=== PATIENT | female | born 1960 | race Caucasian/White ===

== ENCOUNTER → 2018-08-17 08:35 | Outpatient (CLI) | payer OTHER, SELFPAY ==
[2018-08-17 08:43] LABS: Bacteria Urine None Seen; RBC Urine None Seen (0-5/HPF); WBC Urine None Seen (0-5/HPF)
[2018-08-17 09:39] LABS: Mean Corpuscular HGB Conc 34.1 % (30-36); Mean Corpuscular Hemoglobin 29.9 PG (26-34); Mean Corpuscular Volume 87.8 fL (80-100); Platelet Count 323 X10^3/uL (150-400); Red Blood Cell Count 5.01 X10^6/uL (4.0-5.2); Red Cell Distribution Width 13.1 % (11.6-14.8); White Blood Cell Count 5.8 X10^3/uL (4.5-11.0)
[2018-08-17 09:59] LABS: Alanine Aminotransferase 38 IU/L (9-52); Albumin 4.5 g/dL (3.5-5.0); Albumin Globulin Ratio 1.5 (1.0-2.8); Alkaline Phosphatase 85 U/L (38-126); Aspartate Aminotransferase 35 IU/L (14-36); Bilirubin Total 0.8 mg/dL (0.2-1.3); Blood Urea Nitrogen 16 mg/dL (7-17); Calcium 9.2 mg/dL (8.4-10.2); Carbon Dioxide 31 mmol/L (22-32); Chloride 102 mmol/L (98-107); Cholesterol 160 mg/dL (140-199); Estimated Glomerular Filt Rate > 60.0 mL/min (>60); Glucose 96 mg/dL (70-100); HDL Cholesterol 35 mg/dL (40-60); HEMOLYSIS < 15 (0-50); LDL Cholesterol Calculated 86 mg/dL (<100); Potassium 4.6 mmol/L (3.4-5.1); Sodium 142 mmol/L (137-145); Total Protein 7.5 g/dL (6.3-8.2); Triglycerides 196 mg/dL (35-150)
[2018-08-17 10:24] LABS: Thyroid Stimulating Hormone 1.14 uIU/mL (0.47-4.68)
[2018-08-17 10:38] LABS: Appearance Urine UA CLEAR; Bilirubin Urine UA NEGATIVE (NEGATIVE); Color Urine UA YELLOW; Glucose Urine UA NEGATIVE (Normal); Ketones Urine UA NEGATIVE (NEGATIVE); Leukocyte Esterase Urine UA NEGATIVE (NEGATIVE); Nitrite Urine UA NEGATIVE (Negative); Occult Blood Urine UA 1+ (Negative); Protein Urine UA NEGATIVE (Negative); Specific Gravity Urine UA 1.025 (1.000-1.035); Urobilinogen Urine UA 0.2 E.U./dL (0.2)
[2018-08-17 10:41] LABS: Amorphous Sediment Urine 2+; Squamous Epithelial Cell Urine 5-10 /HPF
[2018-08-17 10:42] LABS: Culture Indicated Urine Cult Not Indicated
== END ==
PROVIDERS: PCP Family Medicine; Visit Provider Family Medicine
DX: L57.0 Actinic keratosis (principal); Z51.81 Encounter for therapeutic drug level monitoring
CPT/HCPCS: 36415; 80053; 80061; 81001; 84443; 85027

== ENCOUNTER → 2018-10-10 08:36 | Outpatient (CLI) | payer OTHER, SELFPAY ==
[2018-10-10 09:15] LABS: Appearance Urine UA CLEAR; Bilirubin Urine UA NEGATIVE (NEGATIVE); Color Urine UA YELLOW; Glucose Urine UA NEGATIVE (Normal); Ketones Urine UA NEGATIVE (NEGATIVE); Leukocyte Esterase Urine UA NEGATIVE (NEGATIVE); Nitrite Urine UA NEGATIVE (Negative); Occult Blood Urine UA 1+ (Negative); Protein Urine UA NEGATIVE (Negative); Specific Gravity Urine UA <=1.005 (1.000-1.035); Urobilinogen Urine UA 0.2 E.U./dL (0.2); pH Urine UA 5.5 (4.5-8.0)
== END ==
PROVIDERS: PCP Family Medicine; Visit Provider Family Medicine
DX: R31.9 Hematuria, unspecified (principal)
CPT/HCPCS: 81003

== ENCOUNTER 2019-05-07 11:29 | Emergency (ER) | payer OTHER, SELFPAY ==
[2019-05-07 11:33] VITALS: BP 130/69; PULSE 60; RESP 18; TEMP 36.5; O2SAT 99; BMI 30.4
--- NOTE | 2019-05-07 12:01 | DI.US.S_ITS ---
PROCEDURE: US ABDOMEN LIMITED INDICATIONS: RIGHT UPPER QUADRANT PAIN WITH NAUSEA TECHNIQUE: Real-time focused scanning was performed of the abdomen, with image documentation. COMPARISON: None. FINDINGS: The liver demonstrates normal size. The liver demonstrates generalized increased echogenicity. This decreases ultrasound sensitivity for detection of hepatic masses. Apparent focal fatty sparing can be seen at the douglas hepatis. No findings of gallstones or sludge are seen. The gallbladder wall is not thickened, measuring 3 mm or less. No specific pericholecystic fluid is seen. The sonographic Real sign is negative. There is no biliary dilatation, the common bile duct measures 4 mm. The visualized pancreas is unremarkable. IMPRESSION: The gallbladder demonstrates a normal sonographic appearance. No biliary dilatation is seen. Apparent focal fatty infiltration with presumed focal fatty sparing Dictated by: Jeremy Bonilla M.D. on 05/07/2019 at 11:51 Approved by: Jeremy Bonilla M.D. on 05/07/2019 at 11:52
[2019-05-07 12:06] LABS: Add Manual Diff / Slide Review NO; Basophils Absolute Auto 100 /uL (0-100); Basophils Percent Auto 0.6 % (0-2); Eosinophils Absolute Auto 200 /uL (0-450); Eosinophils Percent Auto 1.7 % (2-4); Hematocrit 42.3 % (36-46); Hemoglobin 14.6 g/dL (12.0-16.0); Lymphocytes Absolute Auto 1700 /uL (1100-4500); Lymphocytes Percent Auto 14.1 % (25-40); Mean Corpuscular HGB Conc 34.4 % (30-36); Mean Corpuscular Volume 87.1 fL (80-100); Monocytes Absolute Auto 800 /uL (0-900); Monocytes Percent Auto 6.9 % (3-14); Neutrophils Absolute Auto 9300 /uL (1500-7000); Neutrophils Percent Auto 76.7 % (50-75); Platelet Count 268 X10^3/uL (150-400); Red Blood Cell Count 4.86 X10^6/uL (4.0-5.2); Red Cell Distribution Width 12.8 % (11.6-14.8); White Blood Cell Count 12.2 X10^3/uL (4.5-11.0)
[2019-05-07 12:14] LABS: INR 1.1 (0.9-1.3); Prothrombin Time 12.8 SECONDS (10.1-12.7)
--- NOTE | 2019-05-07 12:14 | ED.ABDPAIN ---
HPI - Abdominal Pain <KYLEE Carolina-BC - Last Filed: 05/07/19 15:09> General Chief Complaint: Abdominal Pain Stated Complaint: Really bad upper stomach pain, sent from walk in Time Seen by Provider: 05/07/19 11:51 Source: patient Mode of arrival: ambulatory Limitations: no limitations History of Present Illness HPI narrative: Disease is a 58 year old female, history of nonsmoker, and hysterectomy who presents with a chief complaint of right upper quadrant pain that has been going off and on since 2 days. She states that her pain was 10/10 last night in her right upper quadrant, but it is not as bad today. She states it is worse with eating. She denies any other abdominal surgeries other than her hysterectomy. She complains of subjective fevers, but did not take her temperature as well as chills. She has some nausea, no vomiting. She tried ibuprofen, which helped her pain. She also tried Pepto-Bismol. She complains of 1 day of constipation, but believes it is related to her Pepto-Bismol. She denies any shortness of breath, chest pain, cough or congestion. She states that this has happened before, but the right upper quadrant pain has never lasted this long. She states it radiates around to her flank at times. She describes it as a squeezing pain. Related Data Home Medications Medication Instructions Recorded Confirmed multivitamin [Multiple Vitamins] #0 11/11/17 07/20/18 Previous Rx's Medication Instructions Recorded diazepam 10 mg tablet See Rx Instructions .ROUTE 08/01/18 .COMPLEX PRN #4 tab Allergies Allergy/AdvReac Type Severity Reaction Status Date / Time No Known Drug Allergies Allergy Verified 07/20/18 11:19 Review of Systems <KYLEE Carolina-BC - Last Filed: 05/07/19 15:09> Review of Systems GENERAL: See HPI HEENT: Denies sinus pain, ear pain, sore throat, difficulty swallowing, dizziness. RESPIRATORY: Denies dyspnea, cough, wheezing, hemoptysis, sputum. CARDIOVASCULAR: Denies chest pain, palpitations, orthopnea, edema, GASTROINTESTINAL: see HPI : Denies dysuria, frequency, incontinence, hematuria, urinary retention. MUSCULOSKELETAL: denies weakness, joint pain, or bony pain SKIN: Denies rash, skin lesions, or other NEUROLOGIC: Denies weakness, headache, numbness, change in speech, confusion, seizures, incoordination. PSYCHIATRIC: No concerning psychosocial issues. 12 point review of systems is negative except for those stated above PFSH <WALTER Carolina - Last Filed: 05/07/19 15:09> Medical History Herpes (Chronic 1981) Fibroids (Resolved ~2011) Foot pain (Resolved 2015) Surgical History Status post vaginal hysterectomy (2010) Family History (Updated 07/22/18 @ 10:33 by Anabel Murillo LPN) Mother Age: 80 Hypertension High cholesterol Father High cholesterol Hypertension Grandfather Heart disease Grandmother Cancer Social History Smoking Status: Never smoker alcohol intake: current Family History Mother Age: 80 Hypertension High cholesterol Father High cholesterol Hypertension Grandfather Heart disease Grandmother Cancer Social History Smoking Status: Never smoker alcohol intake: current Exam <WALTER Carolina - Last Filed: 05/07/19 15:09> Narrative Exam Narrative: GENERAL: This is a well-nourished, well-developed patient, in NAD HEAD: Atraumatic. Normocephalic. No temporal or scalp tenderness. EYES: Pupils equal round and reactive. Extraocular motions intact. No scleral icterus. No injection or drainage. ENT: Nose without bleeding, purulent drainage or septal hematoma. Throat without erythema, tonsillar hypertrophy or exudate. Uvula midline. Airway patent. NECK: Trachea midline. No JVD or lymphadenopathy. Supple, nontender, no meningeal signs. CARDIOVASCULAR: Regular rate and rhythm without murmurs, gallops, or rubs. RESPIRATORY: Clear to auscultation. Breath sounds equal bilaterally. No wheezes, rales, or rhonchi. No stridor, no increased work of breathing, no accessory muscle use. GASTROINTESTINAL: Abdomen soft, tender to palpate in RUQ and epigastric area, nondistended. No hepato-splenomegaly, or palpable masses. No guarding. Active bowel sounds in all quadrants EXTREMITIES: No clubbing, cyanosis, or edema. No joint tenderness, effusion, or edema noted. BACK: Nontender without deformity or crepitance. No flank tenderness. NEURO: AOx3. SKIN: No rash or erythema. Initial Vital Signs Initial Vital Signs: Vital Signs Temperature 97.7 F 05/07/19 11:33 Pulse Rate 60 05/07/19 11:33 Respiratory Rate 18 05/07/19 11:33 Blood Pressure 130/69 05/07/19 11:33 Pulse Oximetry 99 05/07/19 11:33 <Reina Cintron MD - Last Filed: 05/07/19 18:45> Initial Vital Signs Initial Vital Signs: Vital Signs Temperature 97.7 F 05/07/19 11:33 Pulse Rate 60 05/07/19 11:33 Respiratory Rate 18 05/07/19 11:33 Blood Pressure 130/69 05/07/19 11:33 Pulse Oximetry 99 05/07/19 11:33 Course <WALTER Carolina - Last Filed: 05/07/19 15:09> Orders Ordered: ED Orders 05/07/19 11:45 Urine Culture Stat Urine Microscopic Stat 05/07/19 11:49 EKG-12 Lead Stat 05/07/19 12:00 Amylase Stat Complete Blood Count AUTO DIFF Stat Comprehensive Metabolic Panel Stat Lipase Stat Partial Thromboplastin Time Stat Prothrombin Time INR Stat Troponin & CK Cardiac Panel Stat 05/07/19 12:01 US abdomen limited Stat Discontinued Medications Al Hydrox/Mg Hydrox/Simethicone 20 ml/ Lidocaine HCl 15 ml 0 ml PO NOW ONE Stop: 05/07/19 13:09 Last Admin: 05/07/19 13:19 Dose: 35 ml Sodium Chloride (Normal Saline 0.9%) 1,000 mls @ 100 mls/hr IV CONT GREG Last Infusion: 05/07/19 14:45 Dose: 0 mls/hr Admin: 05/07/19 12:16 Dose: 100 mls/hr Ondansetron HCl (Zofran) 4 mg IV NOW ONE Stop: 05/07/19 12:04 Last Admin: 05/07/19 12:16 Dose: 4 mg Pantoprazole Sodium (Protonix) 40 mg IV NOW ONE Stop: 05/07/19 13:09 Last Admin: 05/07/19 13:19 Dose: 40 mg Vital Signs - 8 hr 05/07/19 11:33 05/07/19 12:39 05/07/19 13:26 Temperature 97.7 F Pulse Rate 60 52 L 55 L Respiratory Rate 18 16 16 Blood Pressure 130/69 Blood Pressure [Right Arm] 125/68 136/60 Pulse Oximetry 99 100 100 05/07/19 15:02 Temperature Pulse Rate 74 Respiratory Rate 16 Blood Pressure Blood Pressure [Right Arm] 129/78 Pulse Oximetry 99 <Reina Cintron MD - Last Filed: 05/07/19 18:45> Orders Ordered: ED Orders 05/07/19 11:45 Urine Culture Stat Urine Microscopic Stat 05/07/19 11:49 EKG-12 Lead Stat 05/07/19 12:00 Amylase Stat Complete Blood Count AUTO DIFF Stat Comprehensive Metabolic Panel Stat Lipase Stat Partial Thromboplastin Time Stat Prothrombin Time INR Stat Troponin & CK Cardiac Panel Stat 05/07/19 12:01 US abdomen limited Stat Discontinued Medications Al Hydrox/Mg Hydrox/Simethicone 20 ml/ Lidocaine HCl 15 ml 0 ml PO NOW ONE Stop: 05/07/19 13:09 Last Admin: 05/07/19 13:19 Dose: 35 ml Sodium Chloride (Normal Saline 0.9%) 1,000 mls @ 100 mls/hr IV CONT GREG Last Infusion: 05/07/19 14:45 Dose: 0 mls/hr Admin: 05/07/19 12:16 Dose: 100 mls/hr Ondansetron HCl (Zofran) 4 mg IV NOW ONE Stop: 05/07/19 12:04 Last Admin: 05/07/19 12:16 Dose: 4 mg Pantoprazole Sodium (Protonix) 40 mg IV NOW ONE Stop: 05/07/19 13:09 Last Admin: 05/07/19 13:19 Dose: 40 mg Vital Signs - 8 hr 05/07/19 11:33 05/07/19 12:39 05/07/19 13:26 Temperature 97.7 F Pulse Rate 60 52 L 55 L Respiratory Rate 18 16 16 Blood Pressure 130/69 Blood Pressure [Right Arm] 125/68 136/60 Pulse Oximetry 99 100 100 05/07/19 15:02 Temperature Pulse Rate 74 Respiratory Rate 16 Blood Pressure Blood Pressure [Right Arm] 129/78 Pulse Oximetry 99 MDM - Abdominal Pain <Karley Mandel, EDUCATIONAL THERAPIST-BC - Last Filed: 05/07/19 15:09> Lab Data Result diagrams: 05/07/19 12:00 05/07/19 12:00 Lab Results 05/07/19 05/07/19 05/07/19 Range/Units 11:45 12:00 12:00 WBC 12.2 H (4.5-11.0) X10^3/uL RBC 4.86 (4.0-5.2) X10^6/uL Hgb 14.6 (12.0-16.0) g/dL Hct 42.3 (36-46) % MCV 87.1 (80-100) fL MCH 30.0 (26-34) PG MCHC 34.4 (30-36) % RDW 12.8 (11.6-14.8) % Plt Count 268 (150-400) X10^3/uL Neut % (Auto) 76.7 H (50-75) % Lymph % (Auto) 14.1 L (25-40) % [place] % (Auto) 6.9 (3-14) % Eos % (Auto) 1.7 L (2-4) % Baso % (Auto) 0.6 (0-2) % Neut # (Auto) 9300 H (4353-9535) /uL Lymph # (Auto) 1700 (3668-2938) /uL [place] # (Auto) 800 (0-900) /uL Eos # (Auto) 200 (0-450) /uL Baso # (Auto) 100 (0-100) /uL PT 12.8 H (10.1-12.7) SECONDS INR 1.1 (0.9-1.3) APTT 36 (26.4-36.2) SECONDS Sodium (137-145) mmol/L Potassium (3.4-5.1) mmol/L Chloride (98-107) mmol/L Carbon Dioxide (22-32) mmol/L BUN (7-17) mg/dL Creatinine (0.52-1.04) mg/dL Estimated GFR (>60) mL/min BUN/Creatinine Ratio (6-22) Glucose (70-100) mg/dL Calcium (8.4-10.2) mg/dL Total Bilirubin (0.2-1.3) mg/dL AST (14-36) IU/L ALT (9-52) IU/L Alkaline Phosphatase (38-126) U/L Total Creatine Kinase (30-135) U/L CK-MB (CK-2) CK-MB (CK-2) Rel Index Troponin I (0.01-0.034) ng/mL Total Protein (6.3-8.2) g/dL Albumin (3.5-5.0) g/dL Globulin (1.7-4.1) g/dL Albumin/Globulin Ratio (1.0-2.8) Amylase (30-110) U/L Lipase (23-300) U/L Urine RBC 0-1/hpf (0-5/HPF) Urine WBC 0-1/hpf (0-5/HPF) Ur Squamous Epith Cells 5-10 /hpf H (0-5/HPF) Amorphous Sediment 1+ Urine Bacteria Moderate (10-30) H (None) Urine Mucus 3+ H (Negative) Ur Culture Indicated? Cult not indicated 05/07/19 05/07/19 05/07/19 Range/Units 12:00 12:00 12:00 WBC (4.5-11.0) X10^3/uL RBC (4.0-5.2) X10^6/uL Hgb (12.0-16.0) g/dL Hct (36-46) % MCV (80-100) fL MCH (26-34) PG MCHC (30-36) % RDW (11.6-14.8) % Plt Count (150-400) X10^3/uL Neut % (Auto) (50-75) % Lymph % (Auto) (25-40) % [place] % (Auto) (3-14) % Eos % (Auto) (2-4) % Baso % (Auto) (0-2) % Neut # (Auto) (0223-2515) /uL Lymph # (Auto) (4203-7060) /uL [place] # (Auto) (0-900) /uL Eos # (Auto) (0-450) /uL Baso # (Auto) (0-100) /uL PT (10.1-12.7) SECONDS INR (0.9-1.3) APTT (26.4-36.2) SECONDS Sodium 142 (137-145) mmol/L Potassium 4.4 (3.4-5.1) mmol/L Chloride 103 (98-107) mmol/L Carbon Dioxide 29 (22-32) mmol/L BUN 10 (7-17) mg/dL Creatinine 0.80 (0.52-1.04) mg/dL Estimated GFR > 60.0 (>60) mL/min BUN/Creatinine Ratio 12.5 (6-22) Glucose 100 (70-100) mg/dL Calcium 9.6 (8.4-10.2) mg/dL Total Bilirubin 1.0 (0.2-1.3) mg/dL AST 26 (14-36) IU/L ALT 27 (9-52) IU/L Alkaline Phosphatase 100 (38-126) U/L Total Creatine Kinase 59 (30-135) U/L CK-MB (CK-2) TNP CK-MB (CK-2) Rel Index TNP Troponin I < 0.012 (0.01-0.034) ng/mL Total Protein 7.8 (6.3-8.2) g/dL Albumin 4.4 (3.5-5.0) g/dL Globulin 3.4 (1.7-4.1) g/dL Albumin/Globulin Ratio 1.3 (1.0-2.8) Amylase 56 (30-110) U/L Lipase 127 (23-300) U/L Urine RBC (0-5/HPF) Urine WBC (0-5/HPF) Ur Squamous Epith Cells (0-5/HPF) Amorphous Sediment Urine Bacteria (None) Urine Mucus (Negative) Ur Culture Indicated? Point of care testing: Urine Dip Bedside Urine Glucose 100 mg/dl Bedside Urine Bilirubin - Negative Bedside Urine Ketone +/- 5 Urine Specific [place] 1.030 Bedside Urine Occult Blood + Bedside Urine pH 5.5 Bedside Urine Protein + 30 Bedside Urine Urobilinogen +/- 1mg Bedside Urine Nitrite - Negative Bedside Urine Leukocytes +/- 15 Esterase Imaging Data US - abdomen: Radiologist's impression: Zoraida Carrillo 58 F [address] [address] Ultrasound Report Signed Patient: [facility]#: [id number] : 1960Acct:[id number] Age/Sex: 58 / FDate of Service: 05/07/19 Loc: ED Accession Number: [id number] Procedure: US abdomen limited Ordering Provider: Karley Mandel PROCEDURE: US ABDOMEN LIMITED INDICATIONS: RIGHT UPPER QUADRANT PAIN WITH NAUSEA TECHNIQUE: Real-time focused scanning was performed of the abdomen, with image documentation. COMPARISON: None. FINDINGS: The liver demonstrates normal size. The liver demonstrates generalized increased echogenicity. This decreases ultrasound sensitivity for detection of hepatic masses. Apparent focal fatty sparing can be seen at the douglas hepatis. No findings of gallstones or sludge are seen. The gallbladder wall is not thickened, measuring 3 mm or less. No specific pericholecystic fluid is seen. The sonographic Real sign is negative. There is no biliary dilatation, the common bile duct measures 4 mm. The visualized pancreas is unremarkable. IMPRESSION: The gallbladder demonstrates a normal sonographic appearance. No biliary dilatation is seen. Apparent focal fatty infiltration with presumed focal fatty sparing Dictated by: Jeremy Bonilla M.D. on 05/07/2019 at 11:51 Approved by: Jeremy Bonilla M.D. on 05/07/2019 at 11:52 ECG Data Attestation: I personally reviewed and interpreted this ECG as follows: Interpretation: Sinus bradycardia. Ventricular rate 56. No ST elevation or depression. No ectopy noted. Viewed by Dr Saida WHITE Narrative Medical decision making narrative: The patient is a 58-year-old female who presents with a chief complaint of right upper quadrant pain. Her lab work is grossly within normal limits. She is noted to have some bacteria in her urine, but also lots of squamous cells so it is a contaminated sample. I ordered a urine culture, and we will treat if it comes back positive. We did an ultrasound of her right upper quadrant given that she has right upper quadrant pain. This came back within normal limits, with no acute gallbladder etiology. The patient was given Protonix as well as a GI cocktail and felt much improved. The patient later stated that she drink tomato juice with black coffee bright prior to her symptoms starting yesterday. I believe her symptoms are related to GERD/gastritis at this point time. She could be having some biliary colic as well. She felt much improved throughout her stay in the ER. I discussed at length following up with primary care provider as well as dietary changes. Discussed coming back to the ER for any acute concerns such as concern of chest pain, shortness of breath, inability keep down fluids. Discussed urine culture pending at this time. Patient has no questions or concerns upon discharge. I did offer her a prescription, but she declined and shows [id number] treatment at this point. States she will follow up with PCP. Hemodynamically stable throughout her stay in the ER. <Riena Cintron MD - Last Filed: 05/07/19 18:45> Lab Data Lab Results 05/07/19 05/07/19 05/07/19 Range/Units 11:45 12:00 12:00 WBC 12.2 H (4.5-11.0) X10^3/uL RBC 4.86 (4.0-5.2) X10^6/uL Hgb 14.6 (12.0-16.0) g/dL Hct 42.3 (36-46) % MCV 87.1 (80-100) fL MCH 30.0 (26-34) PG MCHC 34.4 (30-36) % RDW 12.8 (11.6-14.8) % Plt Count 268 (150-400) X10^3/uL Neut % (Auto) 76.7 H (50-75) % Lymph % (Auto) 14.1 L (25-40) % [place] % (Auto) 6.9 (3-14) % Eos % (Auto) 1.7 L (2-4) % Baso % (Auto) 0.6 (0-2) % Neut # (Auto) 9300 H (0335-7113) /uL Lymph # (Auto) 1700 (3715-9562) /uL [place] # (Auto) 800 (0-900) /uL Eos # (Auto) 200 (0-450) /uL Baso # (Auto) 100 (0-100) /uL PT 12.8 H (10.1-12.7) SECONDS INR 1.1 (0.9-1.3) APTT 36 (26.4-36.2) SECONDS Sodium (137-145) mmol/L Potassium (3.4-5.1) mmol/L Chloride (98-107) mmol/L Carbon Dioxide (22-32) mmol/L BUN (7-17) mg/dL Creatinine (0.52-1.04) mg/dL Estimated GFR (>60) mL/min BUN/Creatinine Ratio (6-22) Glucose (70-100) mg/dL Calcium (8.4-10.2) mg/dL Total Bilirubin (0.2-1.3) mg/dL AST (14-36) IU/L ALT (9-52) IU/L Alkaline Phosphatase (38-126) U/L Total Creatine Kinase (30-135) U/L CK-MB (CK-2) CK-MB (CK-2) Rel Index Troponin I (0.01-0.034) ng/mL Total Protein (6.3-8.2) g/dL Albumin (3.5-5.0) g/dL Globulin (1.7-4.1) g/dL Albumin/Globulin Ratio (1.0-2.8) Amylase (30-110) U/L Lipase (23-300) U/L Urine RBC 0-1/hpf (0-5/HPF) Urine WBC 0-1/hpf (0-5/HPF) Ur Squamous Epith Cells 5-10 /hpf H (0-5/HPF) Amorphous Sediment 1+ Urine Bacteria Moderate (10-30) H (None) Urine Mucus 3+ H (Negative) Ur Culture Indicated? Cult not indicated 05/07/19 05/07/19 05/07/19 Range/Units 12:00 12:00 12:00 WBC (4.5-11.0) X10^3/uL RBC (4.0-5.2) X10^6/uL Hgb (12.0-16.0) g/dL Hct (36-46) % MCV (80-100) fL MCH (26-34) PG MCHC (30-36) % RDW (11.6-14.8) % Plt Count (150-400) X10^3/uL Neut % (Auto) (50-75) % Lymph % (Auto) (25-40) % [place] % (Auto) (3-14) % Eos % (Auto) (2-4) % Baso % (Auto) (0-2) % Neut # (Auto) (9997-4869) /uL Lymph # (Auto) (9631-3913) /uL [place] # (Auto) (0-900) /uL Eos # (Auto) (0-450) /uL Baso # (Auto) (0-100) /uL PT (10.1-12.7) SECONDS INR (0.9-1.3) APTT (26.4-36.2) SECONDS Sodium 142 (137-145) mmol/L Potassium 4.4 (3.4-5.1) mmol/L Chloride 103 (98-107) mmol/L Carbon Dioxide 29 (22-32) mmol/L BUN 10 (7-17) mg/dL Creatinine 0.80 (0.52-1.04) mg/dL Estimated GFR > 60.0 (>60) mL/min BUN/Creatinine Ratio 12.5 (6-22) Glucose 100 (70-100) mg/dL Calcium 9.6 (8.4-10.2) mg/dL Total Bilirubin 1.0 (0.2-1.3) mg/dL AST 26 (14-36) IU/L ALT 27 (9-52) IU/L Alkaline Phosphatase 100 (38-126) U/L Total Creatine Kinase 59 (30-135) U/L CK-MB (CK-2) TNP CK-MB (CK-2) Rel Index TNP Troponin I < 0.012 (0.01-0.034) ng/mL Total Protein 7.8 (6.3-8.2) g/dL Albumin 4.4 (3.5-5.0) g/dL Globulin 3.4 (1.7-4.1) g/dL Albumin/Globulin Ratio 1.3 (1.0-2.8) Amylase 56 (30-110) U/L Lipase 127 (23-300) U/L Urine RBC (0-5/HPF) Urine WBC (0-5/HPF) Ur Squamous Epith Cells (0-5/HPF) Amorphous Sediment Urine Bacteria (None) Urine Mucus (Negative) Ur Culture Indicated? Point of care testing: Urine Dip Bedside Urine Glucose 100 mg/dl Bedside Urine Bilirubin - Negative Bedside Urine Ketone +/- 5 Urine Specific [place] 1.030 Bedside Urine Occult Blood + Bedside Urine pH 5.5 Bedside Urine Protein + 30 Bedside Urine Urobilinogen +/- 1mg Bedside Urine Nitrite - Negative Bedside Urine Leukocytes +/- 15 Esterase Discharge Plan Departure Patient Disposition: Home Clinical Impression: Abdominal pain Qualifiers: Abdominal location: right upper quadrant Qualified Code(s): R10.11 - Right upper quadrant pain Discharge Date/Time: 05/07/19 15:03 Interventions: ED Discharge Assessment Last Done: 05/07/19 15:02 Instructions: Heartburn -- Overview, DI for Gastroesophageal Reflux Disease (GERD), DI for Abdominal Pain-Adult, GERD Diet Activity Restrictions/Additional Instructions: Your lab work and ultrasound came back normal today. There is no evidence of gallbladder issue today, but this does not rule out one in the future However you did respond well to the antacid medication. I suggest an [id number] medications such as omeprazole to help prevent acid reflux issues. You can also take Tums or Maalox as needed. Please follow a low acid, low caffeine, low spice diet. Please follow up with her primary care provider. Please come back to the ER for any acute concerns such as chest pain, shortness of breath, inability keep down fluids. Prescriptions: No Action multivitamin [Multiple Vitamins] 1 EACH tablet Qty: 0 RF: 0 diazepam [Valium] 10 mg tablet See Rx Instructions .ROUTE .COMPLEX PRN (Reason: anxiety) Qty: 4 RF: 0 Referrals: Laurie Early DO [Primary Care Provider] -
[2019-05-07 12:16] LABS: RBC Urine 0-1/HPF (0-5/HPF); Squamous Epithelial Cell Urine 5-10 /HPF (0-5/HPF); WBC Urine 0-1/HPF (0-5/HPF)
[2019-05-07] MEDS: SODIUM CHLORIDE 0.9% 1,000 ML 100 ML IV (12:16)
[2019-05-07] MEDS: ONDANSETRON 4 MG/2 ML INJ IV (12:16)
[2019-05-07 12:17] LABS: Amorphous Sediment Urine 1+; Bacteria Urine Moderate (10-30); Culture Indicated Urine Cult Not Indicated; Mucus Urine 3+ (Negative)
[2019-05-07 12:17] LABS: PTT Partial Thromboplastin Tim 36 SECONDS (26.4-36.2)
[2019-05-07 12:18] LABS: Alanine Aminotransferase 27 IU/L (9-52); Albumin 4.4 g/dL (3.5-5.0); Albumin Globulin Ratio 1.3 (1.0-2.8); Alkaline Phosphatase 100 U/L (38-126); Amylase 56 U/L (30-110); Aspartate Aminotransferase 26 IU/L (14-36); BUN Creatinine Ratio 12.5 (6-22); Blood Urea Nitrogen 10 mg/dL (7-17); Calcium 9.6 mg/dL (8.4-10.2); Carbon Dioxide 29 mmol/L (22-32); Chloride 103 mmol/L (98-107); Creatine Kinase 59 U/L (30-135); Estimated Glomerular Filt Rate > 60.0 mL/min (>60); Globulin 3.4 g/dL (1.7-4.1); Glucose 100 mg/dL (70-100); HEMOLYSIS < 15 (0-50); Lipase 127 U/L (23-300); Potassium 4.4 mmol/L (3.4-5.1); Sodium 142 mmol/L (137-145); Total Protein 7.8 g/dL (6.3-8.2)
--- NOTE | 2019-05-07 12:21 | ED_ITS ---
HPI - Abdominal Pain <KYLEE Carolina-BC - Last Filed: 05/07/19 15:09> General Chief Complaint: Abdominal Pain Stated Complaint: Really bad upper stomach pain, sent from walk in Time Seen by Provider: 05/07/19 11:51 Source: patient Mode of arrival: ambulatory Limitations: no limitations History of Present Illness HPI narrative: Disease is a 58 year old female, history of nonsmoker, and hysterectomy who presents with a chief complaint of right upper quadrant pain that has been going off and on since 2 days. She states that her pain was 10/10 last night in her right upper quadrant, but it is not as bad today. She states it is worse with eating. She denies any other abdominal surgeries other than her hysterectomy. She complains of subjective fevers, but did not take her temperature as well as chills. She has some nausea, no vomiting. She tried ibuprofen, which helped her pain. She also tried Pepto-Bismol. She complains of 1 day of constipation, but believes it is related to her Pepto-Bismol. She denies any shortness of breath, chest pain, cough or congestion. She states that this has happened before, but the right upper quadrant pain has never lasted this long. She states it radiates around to her flank at times. She describes it as a squeezing pain. Related Data Home Medications Medication Instructions Recorded Confirmed multivitamin [Multiple Vitamins] #0 11/11/17 07/20/18 Previous Rx's Medication Instructions Recorded diazepam 10 mg tablet See Rx Instructions .ROUTE 08/01/18 .COMPLEX PRN #4 tab Allergies Allergy/AdvReac Type Severity Reaction Status Date / Time No Known Drug Allergies Allergy Verified 07/20/18 11:19 Review of Systems <KYLEE Carolina-BC - Last Filed: 05/07/19 15:09> Review of Systems GENERAL: See HPI HEENT: Denies sinus pain, ear pain, sore throat, difficulty swallowing, dizziness. RESPIRATORY: Denies dyspnea, cough, wheezing, hemoptysis, sputum. CARDIOVASCULAR: Denies chest pain, palpitations, orthopnea, edema, GASTROINTESTINAL: see HPI : Denies dysuria, frequency, incontinence, hematuria, urinary retention. MUSCULOSKELETAL: denies weakness, joint pain, or bony pain SKIN: Denies rash, skin lesions, or other NEUROLOGIC: Denies weakness, headache, numbness, change in speech, confusion, seizures, incoordination. PSYCHIATRIC: No concerning psychosocial issues. 12 point review of systems is negative except for those stated above PFSH <WALTER Carolina - Last Filed: 05/07/19 15:09> Medical History Herpes (Chronic 1981) Fibroids (Resolved ~2011) Foot pain (Resolved 2015) Surgical History Status post vaginal hysterectomy (2010) Family History (Updated 07/22/18 @ 10:33 by Anabel Murillo LPN) Mother Age: 80 Hypertension High cholesterol Father High cholesterol Hypertension Grandfather Heart disease Grandmother Cancer Social History Smoking Status: Never smoker alcohol intake: current Family History Mother Age: 80 Hypertension High cholesterol Father High cholesterol Hypertension Grandfather Heart disease Grandmother Cancer Social History Smoking Status: Never smoker alcohol intake: current Exam <WALTER Carolina - Last Filed: 05/07/19 15:09> Narrative Exam Narrative: GENERAL: This is a well-nourished, well-developed patient, in NAD HEAD: Atraumatic. Normocephalic. No temporal or scalp tenderness. EYES: Pupils equal round and reactive. Extraocular motions intact. No scleral icterus. No injection or drainage. ENT: Nose without bleeding, purulent drainage or septal hematoma. Throat without erythema, tonsillar hypertrophy or exudate. Uvula midline. Airway patent. NECK: Trachea midline. No JVD or lymphadenopathy. Supple, nontender, no meningeal signs. CARDIOVASCULAR: Regular rate and rhythm without murmurs, gallops, or rubs. RESPIRATORY: Clear to auscultation. Breath sounds equal bilaterally. No wheezes, rales, or rhonchi. No stridor, no increased work of breathing, no accessory muscle use. GASTROINTESTINAL: Abdomen soft, tender to palpate in RUQ and epigastric area, nondistended. No hepato-splenomegaly, or palpable masses. No guarding. Active bowel sounds in all quadrants EXTREMITIES: No clubbing, cyanosis, or edema. No joint tenderness, effusion, or edema noted. BACK: Nontender without deformity or crepitance. No flank tenderness. NEURO: AOx3. SKIN: No rash or erythema. Initial Vital Signs Initial Vital Signs: Vital Signs Temperature 97.7 F 05/07/19 11:33 Pulse Rate 60 05/07/19 11:33 Respiratory Rate 18 05/07/19 11:33 Blood Pressure 130/69 05/07/19 11:33 Pulse Oximetry 99 05/07/19 11:33 <Reina Cintron MD - Last Filed: 05/07/19 18:45> Initial Vital Signs Initial Vital Signs: Vital Signs Temperature 97.7 F 05/07/19 11:33 Pulse Rate 60 05/07/19 11:33 Respiratory Rate 18 05/07/19 11:33 Blood Pressure 130/69 05/07/19 11:33 Pulse Oximetry 99 05/07/19 11:33 Course <WALTER Carolina - Last Filed: 05/07/19 15:09> Orders Ordered: ED Orders 05/07/19 11:45 Urine Culture Stat Urine Microscopic Stat 05/07/19 11:49 EKG-12 Lead Stat 05/07/19 12:00 Amylase Stat Complete Blood Count AUTO DIFF Stat Comprehensive Metabolic Panel Stat Lipase Stat Partial Thromboplastin Time Stat Prothrombin Time INR Stat Troponin & CK Cardiac Panel Stat 05/07/19 12:01 US abdomen limited Stat Discontinued Medications Al Hydrox/Mg Hydrox/Simethicone 20 ml/ Lidocaine HCl 15 ml 0 ml PO NOW ONE Stop: 05/07/19 13:09 Last Admin: 05/07/19 13:19 Dose: 35 ml Sodium Chloride (Normal Saline 0.9%) 1,000 mls @ 100 mls/hr IV CONT GREG Last Infusion: 05/07/19 14:45 Dose: 0 mls/hr Admin: 05/07/19 12:16 Dose: 100 mls/hr Ondansetron HCl (Zofran) 4 mg IV NOW ONE Stop: 05/07/19 12:04 Last Admin: 05/07/19 12:16 Dose: 4 mg Pantoprazole Sodium (Protonix) 40 mg IV NOW ONE Stop: 05/07/19 13:09 Last Admin: 05/07/19 13:19 Dose: 40 mg Vital Signs - 8 hr 05/07/19 11:33 05/07/19 12:39 05/07/19 13:26 Temperature 97.7 F Pulse Rate 60 52 L 55 L Respiratory Rate 18 16 16 Blood Pressure 130/69 Blood Pressure [Right Arm] 125/68 136/60 Pulse Oximetry 99 100 100 05/07/19 15:02 Temperature Pulse Rate 74 Respiratory Rate 16 Blood Pressure Blood Pressure [Right Arm] 129/78 Pulse Oximetry 99 <Reina Cintron MD - Last Filed: 05/07/19 18:45> Orders Ordered: ED Orders 05/07/19 11:45 Urine Culture Stat Urine Microscopic Stat 05/07/19 11:49 EKG-12 Lead Stat 05/07/19 12:00 Amylase Stat Complete Blood Count AUTO DIFF Stat Comprehensive Metabolic Panel Stat Lipase Stat Partial Thromboplastin Time Stat Prothrombin Time INR Stat Troponin & CK Cardiac Panel Stat 05/07/19 12:01 US abdomen limited Stat Discontinued Medications Al Hydrox/Mg Hydrox/Simethicone 20 ml/ Lidocaine HCl 15 ml 0 ml PO NOW ONE Stop: 05/07/19 13:09 Last Admin: 05/07/19 13:19 Dose: 35 ml Sodium Chloride (Normal Saline 0.9%) 1,000 mls @ 100 mls/hr IV CONT GREG Last Infusion: 05/07/19 14:45 Dose: 0 mls/hr Admin: 05/07/19 12:16 Dose: 100 mls/hr Ondansetron HCl (Zofran) 4 mg IV NOW ONE Stop: 05/07/19 12:04 Last Admin: 05/07/19 12:16 Dose: 4 mg Pantoprazole Sodium (Protonix) 40 mg IV NOW ONE Stop: 05/07/19 13:09 Last Admin: 05/07/19 13:19 Dose: 40 mg Vital Signs - 8 hr 05/07/19 11:33 05/07/19 12:39 05/07/19 13:26 Temperature 97.7 F Pulse Rate 60 52 L 55 L Respiratory Rate 18 16 16 Blood Pressure 130/69 Blood Pressure [Right Arm] 125/68 136/60 Pulse Oximetry 99 100 100 05/07/19 15:02 Temperature Pulse Rate 74 Respiratory Rate 16 Blood Pressure Blood Pressure [Right Arm] 129/78 Pulse Oximetry 99 MDM - Abdominal Pain <Karley Mandel, HIGHWAY TRAFFIC CONTROL TECHNICIAN-BC - Last Filed: 05/07/19 15:09> Lab Data Result diagrams: 05/07/19 12:00 05/07/19 12:00 Lab Results 05/07/19 05/07/19 05/07/19 Range/Units 11:45 12:00 12:00 WBC 12.2 H (4.5-11.0) X10^3/uL RBC 4.86 (4.0-5.2) X10^6/uL Hgb 14.6 (12.0-16.0) g/dL Hct 42.3 (36-46) % MCV 87.1 (80-100) fL MCH 30.0 (26-34) PG MCHC 34.4 (30-36) % RDW 12.8 (11.6-14.8) % Plt Count 268 (150-400) X10^3/uL Neut % (Auto) 76.7 H (50-75) % Lymph % (Auto) 14.1 L (25-40) % [place] % (Auto) 6.9 (3-14) % Eos % (Auto) 1.7 L (2-4) % Baso % (Auto) 0.6 (0-2) % Neut # (Auto) 9300 H (1113-4421) /uL Lymph # (Auto) 1700 (0289-5644) /uL [place] # (Auto) 800 (0-900) /uL Eos # (Auto) 200 (0-450) /uL Baso # (Auto) 100 (0-100) /uL PT 12.8 H (10.1-12.7) SECONDS INR 1.1 (0.9-1.3) APTT 36 (26.4-36.2) SECONDS Sodium (137-145) mmol/L Potassium (3.4-5.1) mmol/L Chloride (98-107) mmol/L Carbon Dioxide (22-32) mmol/L BUN (7-17) mg/dL Creatinine (0.52-1.04) mg/dL Estimated GFR (>60) mL/min BUN/Creatinine Ratio (6-22) Glucose (70-100) mg/dL Calcium (8.4-10.2) mg/dL Total Bilirubin (0.2-1.3) mg/dL AST (14-36) IU/L ALT (9-52) IU/L Alkaline Phosphatase (38-126) U/L Total Creatine Kinase (30-135) U/L CK-MB (CK-2) CK-MB (CK-2) Rel Index Troponin I (0.01-0.034) ng/mL Total Protein (6.3-8.2) g/dL Albumin (3.5-5.0) g/dL Globulin (1.7-4.1) g/dL Albumin/Globulin Ratio (1.0-2.8) Amylase (30-110) U/L Lipase (23-300) U/L Urine RBC 0-1/hpf (0-5/HPF) Urine WBC 0-1/hpf (0-5/HPF) Ur Squamous Epith Cells 5-10 /hpf H (0-5/HPF) Amorphous Sediment 1+ Urine Bacteria Moderate (10-30) H (None) Urine Mucus 3+ H (Negative) Ur Culture Indicated? Cult not indicated 05/07/19 05/07/19 05/07/19 Range/Units 12:00 12:00 12:00 WBC (4.5-11.0) X10^3/uL RBC (4.0-5.2) X10^6/uL Hgb (12.0-16.0) g/dL Hct (36-46) % MCV (80-100) fL MCH (26-34) PG MCHC (30-36) % RDW (11.6-14.8) % Plt Count (150-400) X10^3/uL Neut % (Auto) (50-75) % Lymph % (Auto) (25-40) % [place] % (Auto) (3-14) % Eos % (Auto) (2-4) % Baso % (Auto) (0-2) % Neut # (Auto) (8463-6659) /uL Lymph # (Auto) (9004-9727) /uL [place] # (Auto) (0-900) /uL Eos # (Auto) (0-450) /uL Baso # (Auto) (0-100) /uL PT (10.1-12.7) SECONDS INR (0.9-1.3) APTT (26.4-36.2) SECONDS Sodium 142 (137-145) mmol/L Potassium 4.4 (3.4-5.1) mmol/L Chloride 103 (98-107) mmol/L Carbon Dioxide 29 (22-32) mmol/L BUN 10 (7-17) mg/dL Creatinine 0.80 (0.52-1.04) mg/dL Estimated GFR > 60.0 (>60) mL/min BUN/Creatinine Ratio 12.5 (6-22) Glucose 100 (70-100) mg/dL Calcium 9.6 (8.4-10.2) mg/dL Total Bilirubin 1.0 (0.2-1.3) mg/dL AST 26 (14-36) IU/L ALT 27 (9-52) IU/L Alkaline Phosphatase 100 (38-126) U/L Total Creatine Kinase 59 (30-135) U/L CK-MB (CK-2) TNP CK-MB (CK-2) Rel Index TNP Troponin I < 0.012 (0.01-0.034) ng/mL Total Protein 7.8 (6.3-8.2) g/dL Albumin 4.4 (3.5-5.0) g/dL Globulin 3.4 (1.7-4.1) g/dL Albumin/Globulin Ratio 1.3 (1.0-2.8) Amylase 56 (30-110) U/L Lipase 127 (23-300) U/L Urine RBC (0-5/HPF) Urine WBC (0-5/HPF) Ur Squamous Epith Cells (0-5/HPF) Amorphous Sediment Urine Bacteria (None) Urine Mucus (Negative) Ur Culture Indicated? Point of care testing: Urine Dip Bedside Urine Glucose 100 mg/dl Bedside Urine Bilirubin - Negative Bedside Urine Ketone +/- 5 Urine Specific [place] 1.030 Bedside Urine Occult Blood + Bedside Urine pH 5.5 Bedside Urine Protein + 30 Bedside Urine Urobilinogen +/- 1mg Bedside Urine Nitrite - Negative Bedside Urine Leukocytes +/- 15 Esterase Imaging Data US - abdomen: Radiologist's impression: Zoraida Carrillo 58 F [address] [address] Ultrasound Report Signed Patient: [facility]#: [id number] : 1960Acct:[id number] Age/Sex: 58 / FDate of Service: 05/07/19 Loc: ED Accession Number: [id number] Procedure: US abdomen limited Ordering Provider: Karley Mandel PROCEDURE: US ABDOMEN LIMITED INDICATIONS: RIGHT UPPER QUADRANT PAIN WITH NAUSEA TECHNIQUE: Real-time focused scanning was performed of the abdomen, with image documentation. COMPARISON: None. FINDINGS: The liver demonstrates normal size. The liver demonstrates generalized increased echogenicity. This decreases ultrasound sensitivity for detection of hepatic masses. Apparent focal fatty sparing can be seen at the douglas hepatis. No findings of gallstones or sludge are seen. The gallbladder wall is not thickened, measuring 3 mm or less. No specific pericholecystic fluid is seen. The sonographic Real sign is negative. There is no biliary dilatation, the common bile duct measures 4 mm. The visualized pancreas is unremarkable. IMPRESSION: The gallbladder demonstrates a normal sonographic appearance. No biliary dilatation is seen. Apparent focal fatty infiltration with presumed focal fatty sparing Dictated by: Jeremy Bonilla M.D. on 05/07/2019 at 11:51 Approved by: Jeremy Bonilla M.D. on 05/07/2019 at 11:52 ECG Data Attestation: I personally reviewed and interpreted this ECG as follows: Interpretation: Sinus bradycardia. Ventricular rate 56. No ST elevation or depression. No ectopy noted. Viewed by Dr Saida WHITE Narrative Medical decision making narrative: The patient is a 58-year-old female who presents with a chief complaint of right upper quadrant pain. Her lab work is grossly within normal limits. She is noted to have some bacteria in her urine, but also lots of squamous cells so it is a contaminated sample. I ordered a urine culture, and we will treat if it comes back positive. We did an ultrasound of her right upper quadrant given that she has right upper quadrant pain. This came back within normal limits, with no acute gallbladder etiology. The patient was given Protonix as well as a GI cocktail and felt much improved. The patient later stated that she drink tomato juice with black coffee bright prior to her symptoms starting yesterday. I believe her symptoms are related to GERD/gastritis at this point time. She could be having some biliary colic as well. She felt much improved throughout her stay in the ER. I discussed at length following up with primary care provider as well as dietary changes. Discussed coming back to the ER for any acute concerns such as concern of chest pain, shortness of breath, inability keep down fluids. Discussed urine culture pending at this time. Patient has no questions or concerns upon discharge. I did offer her a prescription, but she declined and shows [id number] treatment at this point. States she will follow up with PCP. Hemodynamically stable throughout her stay in the ER. <Reina Cintron MD - Last Filed: 05/07/19 18:45> Lab Data Lab Results 05/07/19 05/07/19 05/07/19 Range/Units 11:45 12:00 12:00 WBC 12.2 H (4.5-11.0) X10^3/uL RBC 4.86 (4.0-5.2) X10^6/uL Hgb 14.6 (12.0-16.0) g/dL Hct 42.3 (36-46) % MCV 87.1 (80-100) fL MCH 30.0 (26-34) PG MCHC 34.4 (30-36) % RDW 12.8 (11.6-14.8) % Plt Count 268 (150-400) X10^3/uL Neut % (Auto) 76.7 H (50-75) % Lymph % (Auto) 14.1 L (25-40) % [place] % (Auto) 6.9 (3-14) % Eos % (Auto) 1.7 L (2-4) % Baso % (Auto) 0.6 (0-2) % Neut # (Auto) 9300 H (6183-0351) /uL Lymph # (Auto) 1700 (1662-7326) /uL [place] # (Auto) 800 (0-900) /uL Eos # (Auto) 200 (0-450) /uL Baso # (Auto) 100 (0-100) /uL PT 12.8 H (10.1-12.7) SECONDS INR 1.1 (0.9-1.3) APTT 36 (26.4-36.2) SECONDS Sodium (137-145) mmol/L Potassium (3.4-5.1) mmol/L Chloride (98-107) mmol/L Carbon Dioxide (22-32) mmol/L BUN (7-17) mg/dL Creatinine (0.52-1.04) mg/dL Estimated GFR (>60) mL/min BUN/Creatinine Ratio (6-22) Glucose (70-100) mg/dL Calcium (8.4-10.2) mg/dL Total Bilirubin (0.2-1.3) mg/dL AST (14-36) IU/L ALT (9-52) IU/L Alkaline Phosphatase (38-126) U/L Total Creatine Kinase (30-135) U/L CK-MB (CK-2) CK-MB (CK-2) Rel Index Troponin I (0.01-0.034) ng/mL Total Protein (6.3-8.2) g/dL Albumin (3.5-5.0) g/dL Globulin (1.7-4.1) g/dL Albumin/Globulin Ratio (1.0-2.8) Amylase (30-110) U/L Lipase (23-300) U/L Urine RBC 0-1/hpf (0-5/HPF) Urine WBC 0-1/hpf (0-5/HPF) Ur Squamous Epith Cells 5-10 /hpf H (0-5/HPF) Amorphous Sediment 1+ Urine Bacteria Moderate (10-30) H (None) Urine Mucus 3+ H (Negative) Ur Culture Indicated? Cult not indicated 05/07/19 05/07/19 05/07/19 Range/Units 12:00 12:00 12:00 WBC (4.5-11.0) X10^3/uL RBC (4.0-5.2) X10^6/uL Hgb (12.0-16.0) g/dL Hct (36-46) % MCV (80-100) fL MCH (26-34) PG MCHC (30-36) % RDW (11.6-14.8) % Plt Count (150-400) X10^3/uL Neut % (Auto) (50-75) % Lymph % (Auto) (25-40) % [place] % (Auto) (3-14) % Eos % (Auto) (2-4) % Baso % (Auto) (0-2) % Neut # (Auto) (9243-2871) /uL Lymph # (Auto) (0321-5387) /uL [place] # (Auto) (0-900) /uL Eos # (Auto) (0-450) /uL Baso # (Auto) (0-100) /uL PT (10.1-12.7) SECONDS INR (0.9-1.3) APTT (26.4-36.2) SECONDS Sodium 142 (137-145) mmol/L Potassium 4.4 (3.4-5.1) mmol/L Chloride 103 (98-107) mmol/L Carbon Dioxide 29 (22-32) mmol/L BUN 10 (7-17) mg/dL Creatinine 0.80 (0.52-1.04) mg/dL Estimated GFR > 60.0 (>60) mL/min BUN/Creatinine Ratio 12.5 (6-22) Glucose 100 (70-100) mg/dL Calcium 9.6 (8.4-10.2) mg/dL Total Bilirubin 1.0 (0.2-1.3) mg/dL AST 26 (14-36) IU/L ALT 27 (9-52) IU/L Alkaline Phosphatase 100 (38-126) U/L Total Creatine Kinase 59 (30-135) U/L CK-MB (CK-2) TNP CK-MB (CK-2) Rel Index TNP Troponin I < 0.012 (0.01-0.034) ng/mL Total Protein 7.8 (6.3-8.2) g/dL Albumin 4.4 (3.5-5.0) g/dL Globulin 3.4 (1.7-4.1) g/dL Albumin/Globulin Ratio 1.3 (1.0-2.8) Amylase 56 (30-110) U/L Lipase 127 (23-300) U/L Urine RBC (0-5/HPF) Urine WBC (0-5/HPF) Ur Squamous Epith Cells (0-5/HPF) Amorphous Sediment Urine Bacteria (None) Urine Mucus (Negative) Ur Culture Indicated? Point of care testing: Urine Dip Bedside Urine Glucose 100 mg/dl Bedside Urine Bilirubin - Negative Bedside Urine Ketone +/- 5 Urine Specific [place] 1.030 Bedside Urine Occult Blood + Bedside Urine pH 5.5 Bedside Urine Protein + 30 Bedside Urine Urobilinogen +/- 1mg Bedside Urine Nitrite - Negative Bedside Urine Leukocytes +/- 15 Esterase Discharge Plan Departure Patient Disposition: Home Clinical Impression: Abdominal pain Qualifiers: Abdominal location: right upper quadrant Qualified Code(s): R10.11 - Right upper quadrant pain Discharge Date/Time: 05/07/19 15:03 Interventions: ED Discharge Assessment Last Done: 05/07/19 15:02 Instructions: Heartburn -- Overview, DI for Gastroesophageal Reflux Disease (GERD), DI for Abdominal Pain-Adult, GERD Diet Activity Restrictions/Additional Instructions: Your lab work and ultrasound came back normal today. There is no evidence of gallbladder issue today, but this does not rule out one in the future However you did respond well to the antacid medication. I suggest an [id number] medications such as omeprazole to help prevent acid reflux issues. You can also take Tums or Maalox as needed. Please follow a low acid, low caffeine, low spice diet. Please follow up with her primary care provider. Please come back to the ER for any acute concerns such as chest pain, shortness of breath, inability keep down fluids. Prescriptions: No Action multivitamin [Multiple Vitamins] 1 EACH tablet Qty: 0 RF: 0 diazepam [Valium] 10 mg tablet See Rx Instructions .ROUTE .COMPLEX PRN (Reason: anxiety) Qty: 4 RF: 0 Referrals: Laurie Early DO [Primary Care Provider] -
[2019-05-07 12:30] LABS: Troponin I < 0.012 ng/mL (0.01-0.034)
[2019-05-07 12:39] VITALS: BP 125/68; PULSE 52; RESP 16; O2SAT 100
[2019-05-07] MEDS: MAG HYDROX/ALUMINUM/SIMETH SUS 20 ML, LIDOCAINE VISCOUS 2% 15 ML PO (13:19)
[2019-05-07] MEDS: PANTOPRAZOLE 40 MG VIAL IV (13:19)
[2019-05-07 13:26] VITALS: BP 136/60; PULSE 55; RESP 16; O2SAT 100
[2019-05-07 15:02] VITALS: BP 129/78; PULSE 74; RESP 16; O2SAT 99
== END 2019-05-07 15:03 | disposition home or self-care (01) ==
PROVIDERS: Emergency Medicine; Emergency Provider Nurse Practitioner Family; PCP Family Medicine
DX: R10.11 Right upper quadrant pain (principal); R00.1 Bradycardia, unspecified
CPT/HCPCS: 76705; 80053; 81003; 81015; 82150; 82550; 83690; 84484; 85025; 85610; 85730; 87077; 87086; 87147; 93005; 96361; 96374; 96375; 99283; 99285; C9113; J2405

== ENCOUNTER → 2020-09-10 13:49 | Outpatient (CLI) | payer OTHER, SELFPAY ==
--- NOTE | 2020-09-10 13:51 | DI.RAD.S_ITS ---
PROCEDURE: XR CHEST 2V INDICATIONS: Chest pain TECHNIQUE: 2 views of the chest were acquired. COMPARISON: [facility], , CHEST 2 VIEW, 11/12/2016, 10:19. FINDINGS: Surgical changes and devices: None. Lungs and pleura: Lungs are clear. No pleural effusions or pneumothorax. Mediastinum: Mediastinal contours are normal. Heart size is normal. Bones and chest wall: No suspicious bony abnormalities. Soft tissues appear unremarkable. IMPRESSION: Normal for age, source of current chest pain symptoms is not seen. Dictated by: Mahad Jang M.D. on 09/10/2020 at 14:17 Approved by: Mahad Jang M.D. on 09/10/2020 at 14:17
[2020-09-10 15:06] LABS: Add Manual Diff / Slide Review NO; Basophils Absolute Auto 0 /uL (0-100); Basophils Percent Auto 0.5 % (0-2); Eosinophils Absolute Auto 100 /uL (0-450); Eosinophils Percent Auto 1.1 % (2-4); Hematocrit 45.3 % (36-46); Hemoglobin 15.3 g/dL (12.0-16.0); Lymphocytes Absolute Auto 2400 /uL (1100-4500); Lymphocytes Percent Auto 33.1 % (25-40); Mean Corpuscular HGB Conc 33.8 % (30-36); Mean Corpuscular Hemoglobin 30.1 PG (26-34); Mean Corpuscular Volume 89.2 fL (80-100); Monocytes Absolute Auto 400 /uL (0-900); Monocytes Percent Auto 5.9 % (3-14); Neutrophils Absolute Auto 4300 /uL (1500-7000); Neutrophils Percent Auto 59.4 % (50-75); Platelet Count 292 X10^3/uL (150-400); Red Blood Cell Count 5.08 X10^6/uL (4.0-5.2); White Blood Cell Count 7.2 X10^3/uL (4.5-11.0)
[2020-09-10 15:18] LABS: Alanine Aminotransferase 49 IU/L (<35); Albumin 4.8 g/dL (3.5-5.0); Albumin Globulin Ratio 1.3 (1.0-2.8); Alkaline Phosphatase 120 U/L (38-126); Aspartate Aminotransferase 45 IU/L (14-36); BUN Creatinine Ratio 22.4 (6-22); Bilirubin Total 0.5 mg/dL (0.2-1.3); Blood Urea Nitrogen 17 mg/dL (7-17); Calcium 9.6 mg/dL (8.4-10.2); Carbon Dioxide 29 mmol/L (22-32); Chloride 103 mmol/L (98-107); Estimated Glomerular Filt Rate > 60.0 mL/min (>60); Globulin 3.7 g/dL (1.7-4.1); Glucose 94 mg/dL (70-100); HEMOLYSIS 26 (0-50); Potassium 4.6 mmol/L (3.4-5.1); Sodium 138 mmol/L (137-145); Total Protein 8.5 g/dL (6.3-8.2)
[2020-09-10 15:30] LABS: Troponin I < 0.012 ng/mL (0.01-0.034)
== END ==
PROVIDERS: PCP Internal Medicine; Referring Provider Nurse Practitioner; Visit Provider Nurse Practitioner
DX: R07.9 Chest pain, unspecified (principal)
CPT/HCPCS: 36415; 71046; 80053; 84484; 85025; 87635

== ENCOUNTER → 2020-10-21 10:33 | Outpatient (CLI) | payer OTHER, SELFPAY ==
[2020-10-21 11:52] LABS: Prothrombin Time 11.1 SECONDS (10.1-12.7)
[2020-10-21 11:59] LABS: Alanine Aminotransferase 43 IU/L (<35); Albumin 4.3 g/dL (3.5-5.0); Albumin Globulin Ratio 1.4 (1.0-2.8); Alkaline Phosphatase 111 U/L (38-126); Aspartate Aminotransferase 39 IU/L (14-36); Bilirubin Total 0.3 mg/dL (0.2-1.3); Bilirubin Unconjugated 0.5 mg/dL (0.0-1.1); Creatine Kinase 85 U/L (30-135); Globulin 3.1 g/dL (1.7-4.1); HEMOLYSIS < 15 (0-50); Total Protein 7.4 g/dL (6.3-8.2)
[2020-10-21 12:03] LABS: HEMOLYSIS < 15 (0-50); Iron 86 ug/dL (37-170)
[2020-10-21 12:15] LABS: Percent Iron Saturation 25 % (15-50); Total Iron Binding Capacity 343 ug/dL (265-497); Transferrin 270 mg/dL (206-381)
[2020-10-21 12:35] LABS: TSH w/ Reflex to FT4 0.68 uIU/mL (0.47-4.68)
[2020-10-21 16:00] LABS: Hepatitis B Surface Antigen NEGATIVE s/c (NEGATIVE)
[2020-10-21 16:23] LABS: Hep C Virus Ab w/Reflex Quant NEGATIVE s/c (NEGATIVE)
[2020-10-22 04:48] LABS: Hepatitis B Surf Ab Qualitativ Non Reactive (.)
[2020-10-22 08:03] LABS: Ceruloplasmin 23.1 mg/dL (19.0-39.0)
[2020-10-23 16:40] LABS: ANA Screen, IFA Negative (.)
[2020-10-24 12:09] LABS: Smooth Muscle Antibody 5 Units (0-19)
[2020-10-25 02:11] LABS: Deamidated Gliadin IgA 9 units (0-19); Deamidated Gliadin IgG <1 units (0-19); IGA 351 mg/dL (87-352); t-Transglutaminase IgA <2 U/mL (0-3)
== END ==
PROVIDERS: PCP Internal Medicine; Referring Provider Internal Medicine; Visit Provider Internal Medicine
DX: R74.01 Elevation of levels of liver transaminase levels (principal)
CPT/HCPCS: 36415; 80076; 82390; 82550; 82784; 83516; 83540; 83550; 84443; 85610; 86038; 86706; 86803; 87340

== ENCOUNTER → 2022-07-27 12:04 | Outpatient (CLI) | payer OTHER, SELFPAY ==
--- NOTE | 2022-07-27 12:06 | DI.RAD.S_ITS ---
PROCEDURE: XR ACUTE ABDOMEN SERIES INDICATIONS: pelvic pain TECHNIQUE: One view chest and two views of the abdomen were acquired. COMPARISON: None. FINDINGS: Surgical changes and devices: None. Chest: Lungs are clear. Heart size is normal. No pleural effusions. No pneumoperitoneum. Abdomen: Bowel gas pattern is nonobstructive. Fecal stasis in the colon is seen particularly in right colon. No suspicious calcifications. Visualized solid organ contours appear normal. Bones: No suspicious bony lesions. IMPRESSION: 1. Mild to moderate constipation. No bowel obstruction. No gross free air. 2. No acute cardiopulmonary pathology. Dictated by: Tyrone Esparza M.D. on 07/27/2022 at 17:15 Approved by: Tyrone Esparza M.D. on 07/27/2022 at 17:16
== END ==
PROVIDERS: PCP Internal Medicine; Referring Provider Internal Medicine; Visit Provider Internal Medicine
DX: K59.00 Constipation, unspecified (principal); R10.2 Pelvic and perineal pain
CPT/HCPCS: 74022

== ENCOUNTER → 2022-08-13 07:58 | Outpatient (CLI) | payer OTHER, SELFPAY ==
[2022-08-13 09:13] LABS: Alanine Aminotransferase 33 IU/L (<35); Albumin Globulin Ratio 1.4 (1.0-2.8); Alkaline Phosphatase 108 U/L (38-126); Aspartate Aminotransferase 30 IU/L (14-36); BUN Creatinine Ratio 16.7 (6-22); Bilirubin Total 0.5 mg/dL (0.2-1.3); Blood Urea Nitrogen 14 mg/dL (7-17); Calcium 8.8 mg/dL (8.4-10.2); Carbon Dioxide 29 mmol/L (22-32); Chloride 101 mmol/L (98-107); Cholesterol 176 mg/dL (140-199); Estimated Glomerular Filt Rate > 60 mL/min (>60); Globulin 2.8 g/dL (1.7-4.1); Glucose 101 mg/dL (70-100); HDL Cholesterol 38 mg/dL (40-60); HEMOLYSIS < 15 (0-50); LDL Cholesterol Calculated 99 mg/dL (<100); Potassium 4.4 mmol/L (3.4-5.1); Sodium 140 mmol/L (137-145); Total Protein 6.8 g/dL (6.3-8.2); Triglycerides 193 mg/dL (35-150)
== END ==
PROVIDERS: PCP Internal Medicine; Referring Provider Internal Medicine; Visit Provider Internal Medicine
DX: Z13.6 Encounter for screening for cardiovascular disorders (principal); K75.81 Nonalcoholic steatohepatitis (NASH)
CPT/HCPCS: 36415; 80053; 80061

== ENCOUNTER → 2022-10-05 10:15 | Outpatient (CLI) | payer OTHER, SELFPAY ==
[2022-10-05 13:10] LABS: COVID19 -Nasal RAPID Negative (Negative)
== END ==
PROVIDERS: PCP Internal Medicine; Visit Provider Surgery
DX: Z01.812 Encounter for preprocedural laboratory examination (principal); Z20.822 Contact with and (suspected) exposure to COVID-19
CPT/HCPCS: 87635; C9803

== ENCOUNTER 2022-10-06 13:59 | Day surgery (SDC) | payer OTHER, SELFPAY ==
[2022-10-06 14:23] VITALS: BP 142/96; PULSE 72; RESP 20; TEMP 36.2; O2SAT 97; BMI 28.1
[2022-10-06] MEDS: LACTATED RINGERS 1,000 ML 200 ML IV (14:29)
--- NOTE | 2022-10-06 14:32 | PM.HP.1 ---
History of Present Illness History of Present Illness Date Patient Seen: 10/06/22 Time Patient Seen: 14:32 Chief complaint: Colonoscopy Narrative: The patient presents for colorectal screening. Eleven years ago colonoscopy normal.. No personal or family history of colon cancer. On further history denies any recent gastrointestinal symptoms. No nausea, vomiting, abdominal pain, loss of appetite, unexplained weight loss, change in bowel habits, diarrhea, constipation, melena, hematochezia, or bright red blood per rectum. Patient History Medical History (Updated 04/07/22 @ 16:43 by Cristi Calvert MD) Fear of flying Fibroids (~2011) Foot pain (2015) GERD (gastroesophageal reflux disease) Herpes (1981) Herpes simplex with unspecified complication (06/26/11) LEHMAN (nonalcoholic steatohepatitis) Surgical History Status post vaginal hysterectomy (2010) Family & Social History Family History Mother Age: 84 Hypertension High cholesterol Father High cholesterol Hypertension Grandfather Heart disease Grandmother Cancer Social History: household members spouse Tobacco & Substance use: Smoking Status Never smoker alcohol intake current alcohol intake frequency holiday/special occasion Meds Home Medications and Allergies Home Medications Medication Instructions Recorded Confirmed Type alprazolam 0.5 mg tablet 0.5 mg PO TID PRN Anxiety 10/06/22 10/06/22 History Allergies Allergy/AdvReac Type Severity Reaction Status Date / Time omeprazole Allergy Intermediate Rash Verified 10/06/22 14:21 Exam Vital Signs (past 8 hours): - 10/06/22 14:23 Temperature 97.2 F L Pulse Rate 72 Respiratory Rate 20 Blood Pressure 142/96 H Pulse Oximetry 97 Oxygen Delivery Method Room Air Oxygen Delivery Method Room Air Narrative Exam Narrative: General adult woman alert oriented no acute distress Abdomen soft nontender nondistended. Extremities warm well perfused Assessment & Plan Assessment & Plan narrative: The patient requires colorectal screening and colonoscopy is recommended. Technical details were discussed. Risks, benefits, alternatives explained. Risks including but not limited to myocardial infarction, aspiration, bleeding, pain, missed lesion, incomplete examination, need for further radiographic studies, colonic perforation, and need for major abdominal surgery were discussed. All questions were answered to their satisfaction, and they are in agreement with this plan. Time Spent With Patient Critical Care time: I spent a total of [] minutes of critical care time on this patient's care today; this time is exclusive of procedural time.
--- NOTE | 2022-10-06 14:51 | PM.OP.COLON ---
Operative Date/Time/Diagnoses Date of procedure: 10/06/22 Time of procedure: 14:51 Pre-op diagnosis: Screening colonoscopy Post-op diagnosis: same Procedure & Clinicians Study performed: Colonoscopy Same procedure as scheduled: Yes Indications: Screening Surgeon: Charles Nielson Procedure Notes Procedure in detail: The history and physical was performed/updated and the patient is ASA class is 2. The procedure was discussed in detail with the patient. Potential risks complications including infection, bleeding, missed diagnosis, perforation, need for surgery, and were explained. Their questions were answered and informed consent was obtained. Patient was brought to the procedure room and placed standard monitoring equipment. The patient's vital signs were monitored continuously throughout the entire procedure. Prior to starting time-out was performed. The patient was placed in the left lateral recumbent position. Procedural sedation was administered by anesthesia. Examination began with a thorough inspection of the perianal area there was no evidence of fissures, fistulae, external hemorrhoids or cutaneous malignancy. The colonoscopy scope was then placed into the anal canal and was advanced to the cecum, which was identified by the ileocecal valve, the appendiceal orifice and the confluence of the taenia. The scope was then slowly withdrawn examining colon thoroughly in all directions, irrigating it of any residual stool. FINDINGS 1. No masses or polyps 2. Normal healthy colon 3. Internal hemorrhoids The patient tolerated the procedure well. They will be discharged once criteria are met. The prep was of good/excellent quality. The withdrawl time was 6 minutes. Impression: Normal colonoscopy Post-procedure Recommendations: Colonoscopy in 10 years Disposition: same day surgery
[2022-10-06 14:55] VITALS: BP 94/68; PULSE 57; RESP 14; TEMP 36.4; O2SAT 92
[2022-10-06 15:00] VITALS: BP 103/66; PULSE 59; RESP 12; O2SAT 94
[2022-10-06 15:05] VITALS: BP 105/74; PULSE 67; RESP 18; TEMP 36.5; O2SAT 95
[2022-10-06 15:08] VITALS: BP 111/72; PULSE 66; RESP 14; TEMP 36.5; O2SAT 97
== END 2022-10-06 15:34 | disposition home or self-care (01) ==
PROVIDERS: PCP Internal Medicine; Referring Provider Surgery; Visit Provider Surgery
PROC: 0DJD8ZZ Inspection of Lower Intestinal Tract, Via Natural or Artificial Opening Endoscopic (ICD-10-PCS; CPT 45378; principal; 2022-10-06 15:00)
DX: Z12.11 Encounter for screening for malignant neoplasm of colon (principal); K64.8 Other hemorrhoids
CPT/HCPCS: 45378; J2250; J2704; J3010

== ENCOUNTER → 2022-12-29 15:16 | Outpatient (CLI) | payer OTHER, SELFPAY ==
--- NOTE | 2022-12-29 15:18 | DI.MG.S_ITS ---
BILATERAL DIGITAL SCREENING MAMMOGRAM 3D/2D WITH CAD: 12/29/2022 CLINICAL: Routine screening. Family history of breast cancer. Comparison is made to exams dated: 12/27/2017 mammogram, 04/16/2016 mammogram, and 04/11/2015 mammogram - [facility]. Both breasts are heterogeneously dense, which may obscure small masses (category c / 51-75% glandular tissue). Current study was also evaluated with a Computer Aided Detection (CAD) system. No significant masses, calcifications, or other findings are seen in either breast. There has been no significant interval change. IMPRESSION: NEGATIVE There is no mammographic evidence of malignancy. A 1 year screening mammogram is recommended. Based on the Tyrer Cuzick model (a risk assessment model) the patient's lifetime risk is 9.0% and her 10 year risk is 3.6%. According to the ACR, ACS, and NCCN guidelines, an annual breast MRI exam along with mammogram is recommended if the patient's lifetime risk is 20% or greater. This exam was interpreted at Station ID: [id number]. NOTE: For mammograms, a report in lay terms will be sent to the patient. Approximately 15% of breast malignancies will not be visualized mammographically. In the management of a palpable breast mass, a negative mammogram must not discourage biopsy of a clinically suspicious lesion. Electronically Signed By: Anibal lay/chen:12/30/2022 09:17:35 letter sent: Normal Exam ACR BI-RADS Category 1: Negative 3341F
== END ==
PROVIDERS: PCP Internal Medicine; Referring Provider Internal Medicine; Visit Provider Internal Medicine
DX: Z12.31 Encounter for screening mammogram for malignant neoplasm of breast (principal); Z80.3 Family history of malignant neoplasm of breast
CPT/HCPCS: 77063; 77067

== ENCOUNTER → 2023-09-24 10:35 | Outpatient (CLI) | payer OTHER, SELFPAY ==
--- NOTE | 2023-09-24 11:50 | DI.RAD.S_ITS ---
PROCEDURE: XR CHEST 2V INDICATIONS: Cough, rales present TECHNIQUE: 2 views of the chest were acquired. COMPARISON: [facility], , XR CHEST 2V, 09/10/2020, 12:50. FINDINGS: Surgical changes and devices: None. Lungs and pleura: Lungs are clear. No pleural effusions or pneumothorax. Mediastinum: Mediastinal contours are normal. Heart size is normal. Bones and chest wall: No suspicious bony abnormalities. Soft tissues appear unremarkable. IMPRESSION: No acute cardiopulmonary pathology. Dictated by: Tyrone Esparza M.D. on 09/24/2023 at 12:01 Approved by: Tyrone Esparza M.D. on 09/24/2023 at 12:01
== END ==
PROVIDERS: PCP Internal Medicine; Referring Provider Physician Assistant; Visit Provider Physician Assistant
DX: R05.1 Acute cough (principal)
CPT/HCPCS: 71046

== ENCOUNTER 2024-04-16 09:23 | Inpatient (IN) | payer OTHER, SELFPAY ==
[2024-04-16] VITALS (13 sets, daily range): BP systolic 145–203; BP diastolic 72–93; PULSE 61–97; RESP 13–25; TEMP 36.4–37.2; O2SAT 96–100; BMI 30.4
--- NOTE | 2024-04-16 09:44 | EKG_ITS ---
[place] [address] [address] [place] [id number] Test Date: 2024-04-16 Pat Name: Zoraida Carrillo Department: [facility] Room: Gender: Female Lobster Catcher: : 1960 Requested By: Order Number: [id number] Reading MD: Francisco Head Measurements Intervals [place] Rate: 60 P: 57 [place]: 170 QRS: 29 QRSD: 72 T: 42 QT: 438 QTc: 438 Interpretive Statements Normal sinus rhythm Electronically Signed On 04-17-2024 16:35:27 PDT by Francisco Head
[2024-04-16 09:48] LABS: Add Manual Diff / Slide Review NO; Basophils Absolute Auto 0 /uL (0-100); Basophils Percent Auto 0.4 % (0-2); Eosinophils Absolute Auto 0 /uL (0-450); Eosinophils Percent Auto 0.3 % (2-4); Hematocrit 43.8 % (36-46); Hemoglobin 15.4 g/dL (12.0-16.0); Lymphocytes Absolute Auto 900 /uL (1100-4500); Mean Corpuscular HGB Conc 35.1 % (30-36); Mean Corpuscular Hemoglobin 31.1 PG (26-34); Mean Corpuscular Volume 88.5 fL (80-100); Monocytes Absolute Auto 500 /uL (0-900); Monocytes Percent Auto 4.3 % (3-14); Neutrophils Absolute Auto 10200 /uL (1500-7000); Platelet Count 289 X10^3/uL (150-400); Red Blood Cell Count 4.95 X10^6/uL (4.0-5.2); Red Cell Distribution Width 13.2 % (11.6-14.8); White Blood Cell Count 11.7 X10^3/uL (4.5-11.0)
[2024-04-16 09:59] LABS: Alanine Aminotransferase 27 IU/L (<35); Albumin 4.8 g/dL (3.5-5.0); Albumin Globulin Ratio 1.4 (1.0-2.8); Alkaline Phosphatase 107 U/L (38-126); Aspartate Aminotransferase 32 IU/L (14-36); BUN Creatinine Ratio 15.4 (6-22); Bilirubin Total 1.3 mg/dL (0.2-1.3); Blood Urea Nitrogen 10 mg/dL (7-17); Calcium 9.1 mg/dL (8.4-10.2); Carbon Dioxide 25 mmol/L (22-32); Chloride 104 mmol/L (98-107); Estimated Glomerular Filt Rate > 60 mL/min (>60); Globulin 3.5 g/dL (1.7-4.1); Glucose 116 mg/dL (80-110); HEMOLYSIS < 15 (0-50); Sodium 135 mmol/L (137-145); Total Protein 8.3 g/dL (6.3-8.2)
[2024-04-16 10:19] LABS: Lipase 6260 U/L (23-300)
--- NOTE | 2024-04-16 10:22 | DI.US.S_ITS ---
PROCEDURE: US ABDOMEN LIMITED INDICATIONS: ruq, pancreatitis, patient lipase 6260 TECHNIQUE: Real-time scanning was performed of the abdominal and retroperitoneal organs, with image documentation. COMPARISON: [facility], , US ABDOMEN LIMITED, 05/07/2019, 12:27. FINDINGS: Liver: Liver is normal in size and homogeneous in echotexture. Gallbladder: No gallstones identified. Normal gallbladder wall thickness. No pericholecystic fluid. Negative sonographic Real sign. Biliary ducts: Intrahepatic bile ducts are non-dilated. Extrahepatic bile duct caliber measures 2 mm. Normal is 6-7 mm or less in diameter, or 10 mm or less post-cholecystectomy. Pancreas: Visualized portions of the pancreas appear enlarged with abnormal contour. IMPRESSION: Enlarged pancreas with abnormal contour. Findings may represent pancreatitis in the context of elevated lipase. No cholelithiasis or sonographic evidence of acute cholecystitis. Approved by: Nikki Claudio M.D.,Ph.D. on 04/16/2024 at 10:44
--- NOTE | 2024-04-16 10:33 | ED_ITS ---
HPI - Abdominal Pain General Chief Complaint: Abdominal Pain Stated Complaint: ABD Pain, vomitting Time Seen by Provider: 04/16/24 10:22 Source: patient Mode of arrival: Ambulatory History of Present Illness HPI narrative: Patient is a 63-year-old female who is relatively healthy presenting today with abdominal pain nausea vomiting. She reports that she and her friends went to [place] 3 days ago she ate well and had a couple alcoholic drain drinks which is abnormal for her. She had a little bit of abdominal upset at that time the following day she said it went away however yesterday she has been throwing up and unable to keep anything down. She continues to have some abdominal pain. No chest pain palpitations or fever. She still has her gallbladder. Related Data Home Medications Medication Instructions Recorded Confirmed No Known Home Medications 04/16/24 04/16/24 Allergies Allergy/AdvReac Type Severity Reaction Status Date / Time omeprazole Allergy Intermediate Rash Verified 09/24/23 10:31 Patient History Medical History LEHMAN (nonalcoholic steatohepatitis) Fear of flying Herpes simplex with unspecified complication (06/26/11) GERD (gastroesophageal reflux disease) Foot pain (2015) Fibroids (~2011) Herpes (1981) Surgical History Status post vaginal hysterectomy (2010) Family History Mother Age: 85 Hypertension High cholesterol Father High cholesterol Hypertension Grandfather Heart disease Grandmother Cancer Social History household members: spouse Smoking Status: Never smoker alcohol intake: current Smoking Status: Never smoker alcohol intake frequency: holidays/special occasions only Substance Use Type: does not use Exam Initial Vital Signs Initial Vital Signs: Vital Signs Blood Pressure 185/85 H 04/16/24 09:30 Pulse Oximetry 99 04/16/24 09:30 GENERAL: Alert 63-year-old female appears to not feel well and in no acute distress. HEENT: Head atraumatic,EOMI, pupils reactive, face symmetric, moist mucous membranes CARDIOVASCULAR: Regular rate and rhythm without murmurs, rubs or gallops. RESPIRATORY: Breath sounds equal bilaterally, no wheezes rales or rhonchi. ABDOMEN: Soft, diffuse mid abdominal tenderness negative Real's sign EXTREMITIES: Normal range of motion, no clubbing or edema. Neurovascularly intact NEUROLOGICAL: Alert and oriented x4.Normal gait and speech. SKIN: Warm, dry, no laceration, no petechiae, no rashes or lesions. Course Orders Ordered: ED Orders 04/16/24 09:37 Complete Blood Count AUTO DIFF Stat Comprehensive Metabolic Panel Stat Lipase Stat 04/16/24 09:39 EKG-12 Lead Stat 04/16/24 10:22 US abdomen limited Stat 04/16/24 13:18 CT abdomen pelvis w con Stat 04/16/24 13:38 Education, smoking cessation ONGOING 04/17/24 05:00 Amylase Routine Complete Blood Count AUTO DIFF Routine Comprehensive Metabolic Panel Routine Hepatic (Liver) Panel Routine Magnesium Routine Triglycerides Routine Acetaminophen (Acetaminophen 325 Mg Tablet) 650 mg PO Q6H PRN PRN Reason: Fever/Mild Pain (1-3) Hydrocodone Bitart/Acetaminophen (Hydrocodone/Acet 5/325 Tablet) 1 tab PO Q4H PRN PRN Reason: Pain, Moderate (4-6) Hydrocodone Bitart/Acetaminophen (Hydrocodone/Acet 5/325 Tablet) 2 tab PO Q4H PRN PRN Reason: Pain, Severe (7-10) Enoxaparin Sodium (Enoxaparin 40 Mg/0.4 Ml Syringe) 40 mg SUBCUT DAILY GREG Dextrose/Sodium Chloride (Dextrose 5%-0.45% Ns) 1,000 mls @ 150 mls/hr IV CONT GREG Last Admin: 04/16/24 15:17 Dose: 150 mls/hr Documented By: LDV Morphine Sulfate (Morphine 4 Mg/Ml Inj) 2 mg IV Q2HR PRN PRN Reason: pain Last Admin: 04/16/24 14:24 Dose: 2 mg Documented By: LDV Naloxone HCl (Naloxone 0.4 Mg/Ml Vial) 0.2 mg IV Q2MIN PRN PRN Reason: Opiate Reversal Ondansetron HCl (Ondansetron 4 Mg/2 Ml Inj) 4 mg IV NOW PRN PRN Reason: Nausea And Vomiting Last Admin: 04/16/24 11:45 Dose: 4 mg Documented By: RB Ondansetron HCl (Ondansetron 4 Mg Odt) 4 mg PO NOW PRN PRN Reason: Nausea And Vomiting Ondansetron HCl (Ondansetron 4 Mg/2 Ml Inj) 4 mg IV Q8HR PRN PRN Reason: Nausea And Vomiting Pantoprazole Sodium (Pantoprazole 40 Mg Vial) 40 mg IV DAILY GREG Sennosides (Sennosides 8.6 Mg Tablet) 17.2 mg PO PRN PRN PRN Reason: Constipation Discontinued Medications Sodium Chloride (Normal Saline 0.9%) 1,000 mls @ 1,000 mls/hr IV BOLUS ONE Stop: 04/16/24 11:22 Last Infusion: 04/16/24 12:59 Dose: Infused Documented By: Admin: 04/16/24 11:44 Dose: 1,000 mls/hr Documented By: HAYES Sodium Chloride (Normal Saline 0.9%) 1,000 mls @ 1,000 mls/hr IV BOLUS ONE Stop: 04/16/24 14:21 Last Admin: 04/16/24 13:30 Dose: 1,000 mls/hr Documented By: SEVERO Morphine Sulfate (Morphine 2 Mg/Ml Inj) 2 mg IV NOW ONE Stop: 04/16/24 12:24 Last Admin: 04/16/24 12:35 Dose: 2 mg Documented By: SEVERO Vital Signs Vital signs: Vital Signs - 8 hr 04/16/24 10:30 04/16/24 10:30 04/16/24 11:00 Pulse Rate 62 Respiratory Rate 16 Blood Pressure 181/85 H 194/93 H Pulse Oximetry 100 04/16/24 11:00 04/16/24 11:30 04/16/24 11:30 Pulse Rate 64 68 Respiratory Rate 13 14 Blood Pressure 203/91 H Pulse Oximetry 100 100 04/16/24 12:00 04/16/24 12:00 04/16/24 12:30 Pulse Rate 66 74 Respiratory Rate 25 H 21 Blood Pressure 188/87 H Pulse Oximetry 97 97 04/16/24 12:30 04/16/24 13:00 04/16/24 13:00 Pulse Rate 70 Respiratory Rate 23 Blood Pressure 164/86 H 174/82 H Pulse Oximetry 96 04/16/24 13:30 04/16/24 13:30 Pulse Rate 72 Respiratory Rate 21 Blood Pressure 156/78 H Pulse Oximetry 96 MDM - Abdominal Pain Lab Data 04/16/24 09:37 04/16/24 09:37 Labs: Lab Results 04/16/24 Range/Units 09:37 WBC 11.7 H (4.5-11.0) X10^3/uL RBC 4.95 (4.0-5.2) X10^6/uL Hgb 15.4 (12.0-16.0) g/dL Hct 43.8 (36-46) % MCV 88.5 (80-100) fL MCH 31.1 (26-34) PG MCHC 35.1 (30-36) % RDW 13.2 (11.6-14.8) % Plt Count 289 (150-400) X10^3/uL Neut % (Auto) 87.0 H (50-75) % Lymph % (Auto) 8.0 L (25-40) % Hanson % (Auto) 4.3 (3-14) % Eos % (Auto) 0.3 L (2-4) % Baso % (Auto) 0.4 (0-2) % Neut # (Auto) 18749 H (8376-1260) /uL Lymph # (Auto) 900 L (9557-5478) /uL Hanson # (Auto) 500 (0-900) /uL Eos # (Auto) 0 (0-450) /uL Baso # (Auto) 0 (0-100) /uL Sodium 135 L (137-145) mmol/L Potassium 4.0 (3.4-5.1) mmol/L Chloride 104 (98-107) mmol/L Carbon Dioxide 25 (22-32) mmol/L BUN 10 (7-17) mg/dL Creatinine 0.65 (0.52-1.04) mg/dL Estimated GFR > 60 (>60) mL/min BUN/Creatinine Ratio 15.4 (6-22) Glucose 116 H (80-110) mg/dL Calcium 9.1 (8.4-10.2) mg/dL Total Bilirubin 1.3 (0.2-1.3) mg/dL AST 32 (14-36) IU/L ALT 27 (<35) IU/L Alkaline Phosphatase 107 (38-126) U/L Total Protein 8.3 H (6.3-8.2) g/dL Albumin 4.8 (3.5-5.0) g/dL Globulin 3.5 (1.7-4.1) g/dL Albumin/Globulin Ratio 1.4 (1.0-2.8) Lipase 6260 H (23-300) U/L Imaging Data US - abdomen: Radiologist's Impression: PROCEDURE: US ABDOMEN LIMITED INDICATIONS: ruq, pancreatitis, patient lipase 6260 TECHNIQUE: Real-time scanning was performed of the abdominal and retroperitoneal organs, with image documentation. COMPARISON: [facility], [place], US ABDOMEN LIMITED, 05/07/2019, 12:27. FINDINGS: Liver: Liver is normal in size and homogeneous in echotexture. Gallbladder: No gallstones identified. Normal gallbladder wall thickness. No pericholecystic fluid. Negative sonographic Real sign. Biliary ducts: Intrahepatic bile ducts are non-dilated. Extrahepatic bile duct caliber measures 2 mm. Normal is 6-7 mm or less in diameter, or 10 mm or less post-cholecystectomy. Pancreas: Visualized portions of the pancreas appear enlarged with abnormal contour. IMPRESSION: Enlarged pancreas with abnormal contour. Findings may represent pancreatitis in the context of elevated lipase. No cholelithiasis or sonographic evidence of acute cholecystitis. Approved by: Nikki Claudio M.D.,Ph.D. on 04/16/2024 at 10:44 CT scan - abdomen/pelvis: Radiologist's Impression: PROCEDURE: CT ABDOMEN PELVIS W CON INDICATIONS: pancreatitis TECHNIQUE: After the administration of intravenous contrast, axial sections acquired from the lung bases to the pubic symphysis. Coronal and sagittal reformats were performed. For radiation dose reduction, the following was used: automated exposure control, adjustment of mA and/or kV according to patient size. COMPARISON: Abdominal ultrasound 04/16/2024. FINDINGS: Image quality: Diagnostic. Lower Chest: No significant findings. ABDOMEN: Liver: No solid mass. Hepatic steatosis Gallbladder: No radiopaque gallstones or wall thickening. Biliary ducts: No biliary dilation. Pancreas: No ductal dilation. There is mild inflammatory changes/fat stranding along the body of the pelvis. No periappendiceal fluid collection. No areas of hypoenhancement to suggest necrosis. Spleen: Size is within normal limits. Adrenal Glands: No adrenal nodules. Kidneys and Ureters: No hydronephrosis. No solid mass. No complex renal cystic lesion which requires follow up. Stomach and Bowel: Normal colonic caliber, without significant wall thickening. Normal caliber appendix Peritoneum: No abnormal intraperitoneal fluid. No free air. Ventral Wall: No significant ventral hernia. Abdominal Nodes: No retroperitoneal or mesenteric adenopathy by size criteria. Vessels: Aorta and inferior vena cava are normal in size. PELVIS: Pelvic Organs: Status post hysterectomy. Bladder: No bladder wall thickening, accounting for underdistention. Pelvic Nodes: No enlarged lymph nodes. Miscellaneous: No inguinal hernias are seen. Bones: No aggressive osseous abnormality. IMPRESSION: Mild periappendiceal inflammatory changes suggestive of acute interstitial pancreatitis in the setting of elevated lipase. No periappendiceal fluid collection or evidence of pancreatic necrosis. Hepatic steatosis. Approved by: Nikki Claudio M.D.,Ph.D. on 04/16/2024 at 14:22 ECG Data Attestation: I personally reviewed and interpreted this ECG as follows: Prior ECG tracings: available for review Interpretation: Normal sinus rhythm rate 60 KS interval 170 QRS 72 QTC 438 no ischemic changes similar to previous EKGs MDM Narrative Medical decision making narrative: Patient is 63-year-old healthy female presents today with abdominal pain nausea vomiting unable to keep anything down. Blood work does show that she has pancreatitis with lipase 6260. Bilirubin is 1.3, AST 32 ALT 27, alk-phos 107. Electrolytes are within normal limits potassium is 4.0, creatinine 0.65 glucose 116 Imaging has been reviewed ultrasound does not show cholelithiasis or choledocholithiasis. CT does not show any evidence of necrotizing pancreatitis. EKG reviewed as above She is given IV fluids along with morphine and Zofran. She is overall feeling a bit better but still feels nauseous. Dr. Steele updated on patient's symptoms test results and accepts Discharge Plan Departure Patient Disposition: Admitted as Observation Clinical Impression: Acute pancreatitis Admit Date/Time: 04/16/24 13:54 Admit Provider: Lamonte Steele
[2024-04-16] MEDS: SODIUM CHLORIDE 0.9% 1,000 ML 1000 ML IV ×2 (11:44→13:30)
[2024-04-16] MEDS: ONDANSETRON 4 MG/2 ML INJ IV (11:45)
[2024-04-16] MEDS: MORPHINE 2 MG/ML INJ IV (12:35)
--- NOTE | 2024-04-16 13:18 | DI.CT.S_ITS ---
PROCEDURE: CT ABDOMEN PELVIS W CON INDICATIONS: pancreatitis TECHNIQUE: After the administration of intravenous contrast, axial sections acquired from the lung bases to the pubic symphysis. Coronal and sagittal reformats were performed. For radiation dose reduction, the following was used: automated exposure control, adjustment of mA and/or kV according to patient size. COMPARISON: Abdominal ultrasound 04/16/2024. FINDINGS: Image quality: Diagnostic. Lower Chest: No significant findings. ABDOMEN: Liver: No solid mass. Hepatic steatosis Gallbladder: No radiopaque gallstones or wall thickening. Biliary ducts: No biliary dilation. Pancreas: No ductal dilation. There is mild inflammatory changes/fat stranding along the body of the pelvis. No periappendiceal fluid collection. No areas of hypoenhancement to suggest necrosis. Spleen: Size is within normal limits. Adrenal Glands: No adrenal nodules. Kidneys and Ureters: No hydronephrosis. No solid mass. No complex renal cystic lesion which requires follow up. Stomach and Bowel: Normal colonic caliber, without significant wall thickening. Normal caliber appendix Peritoneum: No abnormal intraperitoneal fluid. No free air. Ventral Wall: No significant ventral hernia. Abdominal Nodes: No retroperitoneal or mesenteric adenopathy by size criteria. Vessels: Aorta and inferior vena cava are normal in size. PELVIS: Pelvic Organs: Status post hysterectomy. Bladder: No bladder wall thickening, accounting for underdistention. Pelvic Nodes: No enlarged lymph nodes. Miscellaneous: No inguinal hernias are seen. Bones: No aggressive osseous abnormality. IMPRESSION: Mild periappendiceal inflammatory changes suggestive of acute interstitial pancreatitis in the setting of elevated lipase. No periappendiceal fluid collection or evidence of pancreatic necrosis. Hepatic steatosis. Approved by: Nikki Claudio M.D.,Ph.D. on 04/16/2024 at 14:22
--- NOTE | 2024-04-16 13:46 | PM.HP.1 ---
History of Present Illness History of Present Illness Date Patient Seen: 04/16/24 Time Patient Seen: 16:10 Chief complaint: ABD Pain, vomitting Narrative: 63-year-old female with no significant past medical history comes in with abdominal pain nausea and vomiting. Patient states her mother lives with her they decided to on a trip to [place] for few days. When they were there they ate out of their original food choices and had a little bit more alcohol. On this week she began to feel little bit upset in her stomach. And some pain in her epigastric area she had decreased bowel movements and urination. She initially thought she was constipated. Pain persisted she came home on Wednesday. Where she just did not feel right. She decreased her food intake. And then made some soup in took a dose of MiraLax because she thought she was constipated and then she began to have increasing severe abdominal pain. She then became quite nauseated and then had vomiting for 24 hours. Pain was worsened she had a hard time moving because of the discomfort and just could lay in bed on her back. She is felt very tired. She has not had any fevers. She is now starting have a little bit more urination since she has been in the hospital. Patient has previously had some stomach problems on and off with constipation mild elevation of her liver enzymes thought to due to non alcoholic fatty liver disease. Patient says she struggles at times with constipation. She has never had pancreatitis. She has had a hysterectomy no cholecystectomy. She lives at home with her and her mom. In the emergency department patient was started on IV fluids had laboratory testing done received pain medication and ultrasound and CT scan. Ultimately the diagnosis of pancreatitis was given to the patient and she was admitted to the medical floor for further evaluation and treatment. As far social history goes. Patient does not drink much alcohol but did on vacation no recreational drugs and no unusual supplements. [facility] Medical History LEHMAN (nonalcoholic steatohepatitis) Fear of flying Herpes simplex with unspecified complication (06/26/11) GERD (gastroesophageal reflux disease) Foot pain (2015) Fibroids (~2011) Herpes (1981) Surgical History Status post vaginal hysterectomy (2010) Family History Mother Age: 85 Hypertension High cholesterol Father High cholesterol Hypertension Grandfather Heart disease Grandmother Cancer Social History household members: spouse Smoking Status: Never smoker alcohol intake: current Meds Home Medications and Allergies Home Medications Medication Instructions Recorded Confirmed Type No Known Home Medications 04/16/24 04/16/24 History Allergies Allergy/AdvReac Type Severity Reaction Status Date / Time omeprazole Allergy Intermediate Rash Verified 09/24/23 10:31 Exam Vital Signs (past 8 hours): - 04/16/24 09:30 04/16/24 09:30 04/16/24 09:39 Temperature 97.9 F Pulse Rate 63 Respiratory Rate 14 Blood Pressure 185/85 H 185/85 H Pulse Oximetry 99 100 Oxygen Delivery Method Room Air 04/16/24 10:00 04/16/24 10:00 04/16/24 10:03 Temperature Pulse Rate 61 Respiratory Rate 13 Blood Pressure 189/89 H 189/92 H Pulse Oximetry 100 Oxygen Delivery Method 04/16/24 10:03 04/16/24 10:30 04/16/24 10:30 Temperature Pulse Rate 61 62 Respiratory Rate 17 16 Blood Pressure 181/85 H Pulse Oximetry 100 100 Oxygen Delivery Method 04/16/24 11:00 04/16/24 11:00 04/16/24 11:30 Temperature Pulse Rate 64 Respiratory Rate 13 Blood Pressure 194/93 H 203/91 H Pulse Oximetry 100 Oxygen Delivery Method 04/16/24 11:30 04/16/24 12:00 04/16/24 12:00 Temperature Pulse Rate 68 66 Respiratory Rate 14 25 H Blood Pressure 188/87 H Pulse Oximetry 100 97 Oxygen Delivery Method 04/16/24 12:30 04/16/24 12:30 04/16/24 13:00 Temperature Pulse Rate 74 Respiratory Rate 21 Blood Pressure 164/86 H 174/82 H Pulse Oximetry 97 Oxygen Delivery Method 04/16/24 13:00 04/16/24 13:30 04/16/24 13:30 Temperature Pulse Rate 70 72 Respiratory Rate 23 21 Blood Pressure 156/78 H Pulse Oximetry 96 96 Oxygen Delivery Method Oxygen Delivery Method Room Air Narrative Exam Narrative: Gen.: Alert good historian HEENT: Pupils equal round and reactive or mucosa is moist neck is supple Cardio: S1-S2 regular rate and rhythm no murmurs appreciated. Respiratory: Lungs are clear to auscultation no wheezes or crackles normal respiratory effort. Abdomen: Soft midepigastric tenderness no rebound or guarding Extremities: Full range of motion no appreciable weakness no cyanosis or edema. Neurologic: Grossly intact. Objective Labs 04/16/24 09:37 04/16/24 09:37 Labs: Laboratory Results - last 24 hr 04/16/24 09:37 WBC 11.7 H RBC 4.95 Hgb 15.4 Hct 43.8 MCV 88.5 MCH 31.1 MCHC 35.1 RDW 13.2 Plt Count 289 Neut % (Auto) 87.0 H Lymph % (Auto) 8.0 L [place] % (Auto) 4.3 Eos % (Auto) 0.3 L Baso % (Auto) 0.4 Neut # (Auto) 31996 H Lymph # (Auto) 900 L [place] # (Auto) 500 Eos # (Auto) 0 Baso # (Auto) 0 Sodium 135 L Potassium 4.0 Chloride 104 Carbon Dioxide 25 BUN 10 Creatinine 0.65 Estimated GFR > 60 BUN/Creatinine Ratio 15.4 Glucose 116 H Calcium 9.1 Total Bilirubin 1.3 AST 32 ALT 27 Alkaline Phosphatase 107 Total Protein 8.3 H Albumin 4.8 Globulin 3.5 Albumin/Globulin Ratio 1.4 Lipase 6260 H Assessment & Plan Assessment and plan (1) Acute pancreatitis: Status: Acute Plan Acute pancreatitis plan. Patient with acute pancreatitis dietary related possibly alcohol. CT scan and ultrasound reviewed. No impacted stone. Patient has chronic history of mild fatty liver disease. Will go ahead and order a triglycerides. Patient on no medications which causes pancreatitis at this time. Plan patient will be admitted to the hospital with IV fluids clear liquid diet antiemetics and pain medication. Patient will be placed on a proton pump inhibitor for stomach acid protection. Patient also has having some constipation and she will be started on a medication for this. Patient will have DVT prophylaxis. Patient's laboratory testing shows no significant kidney dysfunction calcium dysfunction or other signs of organ dysfunction. Patient has a mildly elevated white blood cell count. Nonalcoholic fatty liver disease chronic and stable Gastritis provide a proton pump inhibitor due to pancreatitis vomiting and recent alcohol use DVT prophylaxis with Lovenox Disposition plan admit as an inpatient
[2024-04-16] MEDS: MORPHINE 4 MG/ML INJ 2 MG IV ×2 (14:24→21:10)
[2024-04-16] MEDS: DEXTROSE 5%-0.45% NS 1,000 ML 150 ML IV ×2 (15:17→23:43)
[2024-04-17] VITALS (9 sets, daily range): BP systolic 105–150; BP diastolic 60–82; PULSE 66–81; RESP 17–20; TEMP 36.2–38.7; O2SAT 96–99
[2024-04-17] MEDS: KETOROLAC 30 MG/ML VIAL IV (03:18)
[2024-04-17] MEDS: ONDANSETRON 4 MG/2 ML INJ IV ×2 (03:18→12:06)
[2024-04-17 04:49] LABS: Add Manual Diff / Slide Review NO; Basophils Absolute Auto 0 /uL (0-100); Basophils Percent Auto 0.3 % (0-2); Eosinophils Absolute Auto 100 /uL (0-450); Eosinophils Percent Auto 0.7 % (2-4); Hematocrit 38.5 % (36-46); Hemoglobin 13.4 g/dL (12.0-16.0); Lymphocytes Absolute Auto 700 /uL (1100-4500); Mean Corpuscular HGB Conc 34.7 % (30-36); Mean Corpuscular Hemoglobin 31.1 PG (26-34); Mean Corpuscular Volume 89.4 fL (80-100); Monocytes Absolute Auto 700 /uL (0-900); Monocytes Percent Auto 7.5 % (3-14); Neutrophils Absolute Auto 7500 /uL (1500-7000); Neutrophils Percent Auto 83.5 % (50-75); Platelet Count 231 X10^3/uL (150-400); Red Blood Cell Count 4.31 X10^6/uL (4.0-5.2); Red Cell Distribution Width 12.8 % (11.6-14.8)
[2024-04-17 04:52] LABS: Alanine Aminotransferase 19 IU/L (<35); Albumin 3.8 g/dL (3.5-5.0); Albumin Globulin Ratio 1.3 (1.0-2.8); Alkaline Phosphatase 77 U/L (38-126); Amylase 180 U/L (30-110); Aspartate Aminotransferase 24 IU/L (14-36); Bilirubin Total 0.8 mg/dL (0.2-1.3); Bilirubin Unconjugated 0.5 mg/dL (0.0-1.1); HEMOLYSIS < 15 (0-50); Total Protein 6.8 g/dL (6.3-8.2); Triglycerides 126 mg/dL (35-150)
[2024-04-17 04:54] LABS: Alanine Aminotransferase 19 IU/L (<35); Albumin 3.8 g/dL (3.5-5.0); Albumin Globulin Ratio 1.3 (1.0-2.8); Alkaline Phosphatase 78 U/L (38-126); Aspartate Aminotransferase 24 IU/L (14-36); BUN Creatinine Ratio 8.6 (6-22); Bilirubin Total 0.9 mg/dL (0.2-1.3); Blood Urea Nitrogen 6 mg/dL (7-17); Calcium 8.4 mg/dL (8.4-10.2); Carbon Dioxide 25 mmol/L (22-32); Chloride 106 mmol/L (98-107); Estimated Glomerular Filt Rate > 60 mL/min (>60); Globulin 2.9 g/dL (1.7-4.1); Glucose 135 mg/dL (80-110); HEMOLYSIS < 15 (0-50); Magnesium 1.9 mg/dL (1.6-2.3); Potassium 3.2 mmol/L (3.4-5.1); Sodium 133 mmol/L (137-145); Total Protein 6.7 g/dL (6.3-8.2)
[2024-04-17] MEDS: DEXTROSE 5%-0.45% NS 1,000 ML 150 ML IV ×3 (06:01→22:40)
--- NOTE | 2024-04-17 07:48 | PM.PN.1 ---
Subjective Subjective Date Patient Seen: 04/17/24 Time Patient Seen: 07:48 Interval history: Patient discussed with Dr. Steele who admitted her yesterday No clear etiology for pancreatitis beyond the alcohol. No evidence of obstruction, no high-risk medications etcetera Low-grade temp at 100.3?, not surprising given the diagnosis White count however normal this morning. She is a bit hypokalemic with potassium of 3.2. Still having a fair amount of abdominal pain. Minimally improved since admission. Biggest complaint right the moment however is discomfort around her IV with the potassium being infused Exam Vital Signs (past 8 hours): - 04/17/24 00:14 04/17/24 03:00 04/17/24 03:18 Temperature 97.7 F 101.6 F H 101.6 F H Pulse Rate 77 77 Respiratory Rate 18 20 Blood Pressure 105/60 137/71 Pulse Oximetry 99 98 Oxygen Flow Rate 0 0 04/17/24 04:19 04/17/24 04:20 04/17/24 06:05 Temperature 100.3 F H 100.3 F H 99.1 F Pulse Rate Respiratory Rate Blood Pressure Pulse Oximetry Oxygen Flow Rate Oxygen Delivery Method Room Air Oxygen Flow Rate 0 Objective Labs 04/17/24 04:15 04/17/24 04:15 Labs: Laboratory Results - last 24 hr 04/16/24 04/17/24 04/17/24 09:37 04:15 04:15 WBC 11.7 H 9.0 RBC 4.95 4.31 Hgb 15.4 13.4 Hct 43.8 38.5 MCV 88.5 89.4 MCH 31.1 31.1 MCHC 35.1 34.7 RDW 13.2 12.8 Plt Count 289 231 Neut % (Auto) 87.0 H 83.5 H Lymph % (Auto) 8.0 L 8.0 L [place] % (Auto) 4.3 7.5 Eos % (Auto) 0.3 L 0.7 L Baso % (Auto) 0.4 0.3 Neut # (Auto) 73530 H 7500 H Lymph # (Auto) 900 L 700 L [place] # (Auto) 500 700 Eos # (Auto) 0 100 Baso # (Auto) 0 0 Sodium 135 L 133 L Potassium 4.0 3.2 L Chloride 104 106 Carbon Dioxide 25 25 BUN 10 6 L Creatinine 0.65 0.70 Estimated GFR > 60 > 60 BUN/Creatinine Ratio 15.4 8.6 Glucose 116 H 135 H Calcium 9.1 8.4 Magnesium 1.9 Total Bilirubin 1.3 0.8 0.9 Conjugated Bilirubin 0.0 Unconjugated Bilirubin 0.5 AST 32 24 ALT 27 Alkaline Phosphatase 107 Total Protein 8.3 H Albumin 4.8 Globulin 3.5 Albumin/Globulin Ratio 1.4 Triglycerides Amylase Lipase 6260 H 04/17/24 04/17/24 04/17/24 04:15 04:15 04:15 WBC RBC Hgb Hct MCV MCH MCHC RDW Plt Count Neut % (Auto) Lymph % (Auto) [place] % (Auto) Eos % (Auto) Baso % (Auto) Neut # (Auto) Lymph # (Auto) [place] # (Auto) Eos # (Auto) Baso # (Auto) Sodium Potassium Chloride Carbon Dioxide BUN Creatinine Estimated GFR BUN/Creatinine Ratio Glucose Calcium Magnesium Total Bilirubin Conjugated Bilirubin Unconjugated Bilirubin AST 24 ALT 19 19 Alkaline Phosphatase 77 78 Total Protein 6.8 Albumin Globulin Albumin/Globulin Ratio Triglycerides Amylase Lipase 04/17/24 04/17/24 04/17/24 04:15 04:15 04:15 WBC RBC Hgb Hct MCV MCH MCHC RDW Plt Count Neut % (Auto) Lymph % (Auto) [place] % (Auto) Eos % (Auto) Baso % (Auto) Neut # (Auto) Lymph # (Auto) [place] # (Auto) Eos # (Auto) Baso # (Auto) Sodium Potassium Chloride Carbon Dioxide BUN Creatinine Estimated GFR BUN/Creatinine Ratio Glucose Calcium Magnesium Total Bilirubin Conjugated Bilirubin Unconjugated Bilirubin AST ALT Alkaline Phosphatase Total Protein 6.7 Albumin 3.8 3.8 Globulin 3.0 2.9 Albumin/Globulin Ratio 1.3 Triglycerides Amylase Lipase 04/17/24 04:15 WBC RBC Hgb Hct MCV MCH MCHC RDW Plt Count Neut % (Auto) Lymph % (Auto) [place] % (Auto) Eos % (Auto) Baso % (Auto) Neut # (Auto) Lymph # (Auto) [place] # (Auto) Eos # (Auto) Baso # (Auto) Sodium Potassium Chloride Carbon Dioxide BUN Creatinine Estimated GFR BUN/Creatinine Ratio Glucose Calcium Magnesium Total Bilirubin Conjugated Bilirubin Unconjugated Bilirubin AST ALT Alkaline Phosphatase Total Protein Albumin Globulin Albumin/Globulin Ratio 1.3 Triglycerides 126 Amylase 180 H Lipase [facility] Medical History LEHMAN (nonalcoholic steatohepatitis) Fear of flying Herpes simplex with unspecified complication (06/26/11) GERD (gastroesophageal reflux disease) Foot pain (2015) Fibroids (~2011) Herpes (1981) Surgical History Status post vaginal hysterectomy (2010) Family History Mother Age: 85 Hypertension High cholesterol Father High cholesterol Hypertension Grandfather Heart disease Grandmother Cancer Social History household members: spouse Smoking Status: Never smoker alcohol intake: current Assessment & Plan Assessment & Plan narrative: 1. Pancreatitis-continue NPO with IV fluids IV antiemetics and pain management. White count improve this morning despite the fever yesterday. Do not believe there is any evidence of a complication to her pancreatitis at this point. Recheck numbers tomorrow including repeat lipase 2. Hypokalemia-replace parenterally, recheck tomorrow along with magnesium IH PROFEE Charge codes Subsequent inpatient/observation care: [id number]
[2024-04-17] MEDS: POTASSIUM CHLORIDE IN WATER 10 MEQ/100 ML PIGGYBACK 100 MEQ IV ×6 (08:00→15:12)
[2024-04-17] MEDS: MORPHINE 4 MG/ML INJ 2 MG IV ×3 (09:02→22:43)
[2024-04-17] MEDS: ENOXAPARIN 40 MG/0.4 ML SYRINGE SUBCUT (09:03)
[2024-04-17] MEDS: PANTOPRAZOLE 40 MG VIAL IV (09:03)
--- NOTE | 2024-04-17 16:43 | CM.DANOTE ---
DCP Assessment Note Pt is a 63yo F [place] resident here with abdominal pain/n/v. found to have acute pancreatitis possibly related to alcohol use. PCP Enrike Whitley and self pay ELECTRICAL AND INSTRUMENTATION MANAGER reviewed EMR. per H&P, pt does not drink much alcohol but went on a recent trip to [place] with family and had some alcohol on vacation, came back with intense abdominal pain. Per Enrike note today, pt remains in a lot of pain. No obvious CM/DCP needs from chart review. P: no identified barriers to safe dc home with spouse support. CM team will continue to follow as needed. DC timeline unknown at this tie. [place] Hussein Discharge Planning/Care Management Advanced directive, confirm from FAMILY Start: 04/16/24 15:16 Freq: Q24H Status: Active Protocol: Document 04/16/24 15:16 LDV (Rec: 04/16/24 18:24 LDV [id number]) Advance Directive, confirm on record Time 15:00 Person contacted patient Copy received No CM Discharge Assessment Start: 04/17/24 16:42 Freq: Status: Active Protocol: Document 04/17/24 16:42 SL (Rec: 04/17/24 16:43 SL [id number]) Discharge Planning Assessment Assigned Dianetic Counselor [place] Dupree DPOA/Assigned Designee Name laura Mackenzie Contact Information [phone] Advance Directives? Yes Advance Directives on File No History Provided By Patient Prior Living Arrangements House Household Members spouse Independent with ADL's Yes Is patient alert and oriented? Yes Barriers to Discharge No Discharge Plan Home Referrals Initiated None needed Whiteboard Updated in Patient Room with No name and ext. # of Dianetic Counselor Review Status In Process Please Provide Date Initial DC 04/17/24 Assessment Was Performed Next Review Type Continued Stay Review
[2024-04-18] MEDS: MORPHINE 2 MG/ML INJ IV ×3 (03:20→23:56)
[2024-04-18 03:32] VITALS: BP 107/65; PULSE 68; RESP 14; TEMP 36.4; O2SAT 97
[2024-04-18] MEDS: ONDANSETRON 4 MG/2 ML INJ IV (05:29)
[2024-04-18] MEDS: DEXTROSE 5%-0.45% NS 1,000 ML 150 ML IV ×4 (05:29→23:56)
[2024-04-18 06:41] LABS: Add Manual Diff / Slide Review NO; Basophils Absolute Auto 0 /uL (0-100); Basophils Percent Auto 0.5 % (0-2); Eosinophils Absolute Auto 300 /uL (0-450); Eosinophils Percent Auto 3.2 % (2-4); Hemoglobin 12.3 g/dL (12.0-16.0); Lymphocytes Absolute Auto 1500 /uL (1100-4500); Lymphocytes Percent Auto 16.2 % (25-40); Mean Corpuscular HGB Conc 34.3 % (30-36); Mean Corpuscular Hemoglobin 30.8 PG (26-34); Mean Corpuscular Volume 89.9 fL (80-100); Monocytes Absolute Auto 900 /uL (0-900); Monocytes Percent Auto 9.8 % (3-14); Neutrophils Absolute Auto 6500 /uL (1500-7000); Neutrophils Percent Auto 70.3 % (50-75); Platelet Count 240 X10^3/uL (150-400); Red Cell Distribution Width 13.1 % (11.6-14.8); White Blood Cell Count 9.3 X10^3/uL (4.5-11.0)
[2024-04-18 06:47] LABS: Lipase 231 U/L (23-300)
[2024-04-18 06:50] LABS: BUN Creatinine Ratio 5.3 (6-22); Blood Urea Nitrogen 4 mg/dL (7-17); Calcium 8.3 mg/dL (8.4-10.2); Carbon Dioxide 28 mmol/L (22-32); Chloride 106 mmol/L (98-107); Estimated Glomerular Filt Rate > 60 mL/min (>60); Glucose 119 mg/dL (80-110); HEMOLYSIS < 15 (0-50); Magnesium 2.1 mg/dL (1.6-2.3); Potassium 3.5 mmol/L (3.4-5.1); Sodium 136 mmol/L (137-145)
--- NOTE | 2024-04-18 06:58 | PC.NURSE ---
Pt has been requiring pain medication more frequently tonight. Did have an episode of nausea that was relief by ondansetron IVP.
--- NOTE | 2024-04-18 08:07 | PM.PN.1 ---
Subjective Subjective Date Patient Seen: 04/18/24 Time Patient Seen: 08:07 Interval history: Abdomen is feeling better. Still very sleepy and thinks the pain meds are making her nauseated and is determined to cut back on pain meds which is likely to be easier to do since her abdomen is better Lab work this morning shows normalization of her lipase. Potassium also normal although low end of normal Exam Vital Signs (past 8 hours): - 04/18/24 03:32 Temperature 97.6 F Pulse Rate 68 Respiratory Rate 14 Blood Pressure 107/65 Pulse Oximetry 97 Oxygen Delivery Method Room Air Oxygen Flow Rate 0 Objective Labs 04/18/24 05:30 04/18/24 05:30 Labs: Laboratory Results - last 24 hr 04/18/24 05:30 WBC 9.3 RBC 4.00 Hgb 12.3 Hct 36.0 MCV 89.9 MCH 30.8 MCHC 34.3 RDW 13.1 Plt Count 240 Neut % (Auto) 70.3 Lymph % (Auto) 16.2 L [place] % (Auto) 9.8 Eos % (Auto) 3.2 Baso % (Auto) 0.5 Neut # (Auto) 6500 Lymph # (Auto) 1500 [place] # (Auto) 900 Eos # (Auto) 300 Baso # (Auto) 0 Sodium 136 L Potassium 3.5 Chloride 106 Carbon Dioxide 28 BUN 4 L Creatinine 0.75 Estimated GFR > 60 BUN/Creatinine Ratio 5.3 L Glucose 119 H Calcium 8.3 L Magnesium 2.1 Lipase 231 D [facility] Medical History LEHMAN (nonalcoholic steatohepatitis) Fear of flying Herpes simplex with unspecified complication (06/26/11) GERD (gastroesophageal reflux disease) Foot pain (2015) Fibroids (~2011) Herpes (1981) Surgical History Status post vaginal hysterectomy (2010) Family History Mother Age: 85 Hypertension High cholesterol Father High cholesterol Hypertension Grandfather Heart disease Grandmother Cancer Social History household members: spouse Smoking Status: Never smoker alcohol intake: current Assessment & Plan Assessment & Plan narrative: 1. Pancreatitis-improve clinically a both subjectively and objectively. Will restart clear liquids with potential to advance later today. Hopefully this, her clinical improvement, and her normalization of her lipase is assigned she will rapidly improve from here and be able to go home perhaps as early as tomorrow 2. Hypokalemia-will add a liquid oral replacement IH PROFEE Charge codes Subsequent inpatient/observation care: [id number]
[2024-04-18 08:30] VITALS: BP 101/63; PULSE 67; RESP 16; TEMP 36.9; O2SAT 95
[2024-04-18] MEDS: ENOXAPARIN 40 MG/0.4 ML SYRINGE SUBCUT (09:06)
[2024-04-18] MEDS: PANTOPRAZOLE 40 MG VIAL IV (09:06)
[2024-04-18 12:00] VITALS: BP 111/71; PULSE 56; RESP 12; TEMP 36.8; O2SAT 99
[2024-04-18 13:41] LABS: Appearance Urine UA CLEAR; Bilirubin Urine UA NEGATIVE (NEGATIVE); Color Urine UA YELLOW; Glucose Urine UA NEGATIVE (Negative); Ketones Urine UA NEGATIVE (NEGATIVE); Leukocyte Esterase Urine UA 1+ (NEGATIVE); Nitrite Urine UA NEGATIVE (Negative); Occult Blood Urine UA TRACE-INTACT (Negative); Protein Urine UA NEGATIVE (Negative); Specific Gravity Urine UA <=1.005 (1.000-1.035)
[2024-04-18 13:56] LABS: Bacteria Urine None Seen; Culture Indicated Urine Cult Not Indicated; RBC Urine 0-1/HPF (0-5/HPF); Squamous Epithelial Cell Urine 0-1 /HPF (0-5/HPF); Urine Volume 10mL (spun); WBC Urine 1-5/HPF (0-5/HPF)
--- NOTE | 2024-04-18 15:19 | CM.DPNOTE ---
DCP Note CITY EDITOR reviewed EMR. Per dolores note, pt abdomen feeling better. pancreatitis improving. plan to advance diet today. could dc home as early as tomorrow. Per chart review, no new obvious needs identified. P: anticipate home with spouse support when medically stable. No identified barriers to safe dc home. CM team will continue to follow as needed. [place] Lakhani, [place]
[2024-04-18] MEDS: POTASSIUM CHLORIDE 20 MEQ/15 ML UDC PO (18:00)
[2024-04-18 20:00] VITALS: BP 106/61; PULSE 66; RESP 17; TEMP 35.9; O2SAT 97
[2024-04-19 05:00] VITALS: BP 122/68; PULSE 55; RESP 16; TEMP 36.4; O2SAT 99
[2024-04-19] MEDS: DEXTROSE 5%-0.45% NS 1,000 ML 150 ML IV (06:21)
[2024-04-19] MEDS: PANTOPRAZOLE DR 40 MG TABLET PO (06:21)
[2024-04-19 08:00] VITALS: BP 132/70; PULSE 71; RESP 16; TEMP 35.8; O2SAT 99
--- NOTE | 2024-04-19 08:03 | PM.DS.1 ---
History of Present Illness History of Present Illness Date Patient Seen: 04/19/24 Time Patient Seen: 08:04 Chief complaint: ABD Pain, vomitting Narrative: 63-year-old female with no significant past medical history comes in with abdominal pain nausea and vomiting. Patient states her mother lives with her they decided to on a trip to [place] for few days. When they were there they ate out of their original food choices and had a little bit more alcohol. On this week she began to feel little bit upset in her stomach. And some pain in her epigastric area she had decreased bowel movements and urination. She initially thought she was constipated. Pain persisted she came home on Wednesday. Where she just did not feel right. She decreased her food intake. And then made some soup in took a dose of MiraLax because she thought she was constipated and then she began to have increasing severe abdominal pain. She then became quite nauseated and then had vomiting for 24 hours. Pain was worsened she had a hard time moving because of the discomfort and just could lay in bed on her back. She is felt very tired. She has not had any fevers. She is now starting have a little bit more urination since she has been in the hospital. Patient has previously had some stomach problems on and off with constipation mild elevation of her liver enzymes thought to due to non alcoholic fatty liver disease. Patient says she struggles at times with constipation. She has never had pancreatitis. She has had a hysterectomy no cholecystectomy. She lives at home with her and her mom. In the emergency department patient was started on IV fluids had laboratory testing done received pain medication and ultrasound and CT scan. Ultimately the diagnosis of pancreatitis was given to the patient and she was admitted to the medical floor for further evaluation and treatment. As far social history goes. Patient does not drink much alcohol but did on vacation no recreational drugs and no unusual supplements. {from Dr. Steele's H&P 04/16/24} Discharge Providers Provider Date of admission: 04/16/24 13:54 Discharge Date: 04/19/24 Primary care physician: Cirsti Calvert MD Discharge provider: Cristi Calvert MD Summary Hospital Course Discharge Diagnosis: 1. Acute pancreatitis 2. Non alcoholic steatohepatitis, old 3. GERD Hospital Course: Patient was admitted to the hospital as above. Diagnose of pancreatitis was made based on imaging and lab results. She was kept NPO given IV fluids IV antiemetics and pain control parenterally as well. With this her symptoms seem to subside. Her lipase rapidly returned to normal. She was there for slowly re fed with increasingly complex foods and had no recurrence of her symptoms. Why the morning of discharge she was able to eat breakfast without causing increased abdominal symptoms was felt to be stable to go home Etiology for pancreatitis felt to be related to alcohol more than anything else. No other findings were present Status at Discharge Cognitive/behavioral status at discharge: oriented Functional status at discharge: independent ambulation Overall status at discharge: patient is progressing back to baseline Time Spent with Patient Time spent: Less than 30 minutes Exam Vital Signs (past 8 hours): - 04/19/24 05:00 Temperature 97.6 F Pulse Rate 55 L Respiratory Rate 16 Blood Pressure 122/68 Pulse Oximetry 99 Oxygen Flow Rate 0 Oxygen Delivery Method Room Air Oxygen Flow Rate 0 Objective Labs 04/18/24 05:30 04/18/24 05:30 Labs: Laboratory Results - last 24 hr 04/18/24 13:15 Urine Color Yellow Urine Appearance Clear Urine pH 6.0 Ur Specific [place] <=1.005 Urine Protein Negative Urine Glucose (UA) Negative Urine Ketones Negative Urine Occult Blood Trace-intact Urine Nitrate Negative Urine Bilirubin Negative Urine Urobilinogen 1.0 Ur Leukocyte Esterase 1+ H Urine RBC 0-1/hpf Urine WBC 1-5/hpf Ur Squamous Epith Cells 0-1 /hpf Urine Bacteria None seen Ur Culture Indicated? Cult not indicated Vol Urine Centrifuged 10ml (spun) [facility] Medical History LEHMAN (nonalcoholic steatohepatitis) Fear of flying Herpes simplex with unspecified complication (06/26/11) GERD (gastroesophageal reflux disease) Foot pain (2015) Fibroids (~2011) Herpes (1981) Surgical History Status post vaginal hysterectomy (2010) Family History Mother Age: 85 Hypertension High cholesterol Father High cholesterol Hypertension Grandfather Heart disease Grandmother Cancer Social History household members: spouse Smoking Status: Never smoker alcohol intake: current Discharge Plan Discharge Plan Patient Disposition: Home Discharge orders & Medications Prescriptions: No Action No Known Home Medications Follow up/Referrals: Cristi Calvert MD [Primary Care Provider] - 2 Weeks Discharge Health Status Multidrug resistant organism: No MDRO Diet/Activity/Treatments Diet: Diet as Tolerated Visit Report/Discharge Packet Instructions: DI for Pancreatitis Stand Alone Forms: Patient Portal/API, Stroke Signs & Symptoms Discharge Data Primary Care Provider: Cristi Calvert PROFEE Charge Codes Discharge inpatient/observation: [id number]
[2024-04-19] MEDS: ENOXAPARIN 40 MG/0.4 ML SYRINGE SUBCUT (08:34)
[2024-04-19] MEDS: POTASSIUM CHLORIDE 20 MEQ/15 ML UDC PO (08:34)
--- NOTE | 2024-04-19 08:47 | CM.DPC ---
DCP Cont. Reviewed EMR and team rounds for status updates. Pt has been medically cleared for home d/c, her spouse will be driving her home this morning, no further DCP needs identified at this time.
--- NOTE | 2024-04-19 13:09 | PC.NURSE ---
Discharge: Ready to d/c to home has had some more loose stools and MD Calvert is aware. She can also take immodium per md. Reviewed packet. Questions answered. Pt d/c to home via auto with mother.
== END 2024-04-19 11:00 | disposition home or self-care (01) | DRG 440 ==
LOC: ED 13:22 → AC 14:11
PROVIDERS: Admitting Provider Family Medicine; Emergency Provider Emergency Medicine; PCP Internal Medicine; Referring Provider Emergency Medicine; Visit Provider Internal Medicine
DX: K85.90 Acute pancreatitis without necrosis or infection, unspecified (principal); K76.0 Fatty (change of) liver, not elsewhere classified; K29.70 Gastritis, unspecified, without bleeding; E87.6 Hypokalemia; K21.9 Gastro-esophageal reflux disease without esophagitis
CPT/HCPCS: 36415; 74177; 76705; 80048; 80053; 80076; 81001; 82150; 83690; 83735; 84478; 85025; 87040; 93005; 96374; 99284; C9113; J1650; J1885; J2270; J2405; Q9967

== ENCOUNTER → 2025-03-14 16:26 | Outpatient (ROUT) | payer OTHER, SELFPAY ==
[2024-04-16 14:53] VITALS: BMI 30.4
== END ==
PROVIDERS: PCP Internal Medicine
DX: R21 Rash and other nonspecific skin eruption (principal)
CPT/HCPCS: 87070; 87075; 87077; 87147; 87186; 87205

== ENCOUNTER → 2025-04-05 07:22 | Outpatient (CLI) | payer OTHER, SELFPAY ==
[2024-04-16 14:53] VITALS: BMI 30.4
[2025-04-05 08:31] LABS: Alanine Aminotransferase 44 IU/L (<35); Albumin 4.4 g/dL (3.5-5.0); Albumin Globulin Ratio 1.6 (1.0-2.8); Alkaline Phosphatase 103 U/L (38-126); Aspartate Aminotransferase 36 IU/L (14-36); BUN Creatinine Ratio 20.7 (6-22); Bilirubin Total 0.7 mg/dL (0.2-1.3); Blood Urea Nitrogen 19 mg/dL (7-17); Calcium 9.4 mg/dL (8.4-10.2); Carbon Dioxide 27 mmol/L (22-32); Chloride 103 mmol/L (98-107); Cholesterol 195 mg/dL (140-199); Estimated Glomerular Filt Rate > 60 mL/min (>60); Globulin 2.7 g/dL (1.7-4.1); Glucose 100 mg/dL (70-99); HDL Cholesterol 44 mg/dL (40-60); HEMOLYSIS < 15 (0-50); LDL Cholesterol Calculated 114 mg/dL (<100); Lipase 60 U/L (23-300); Potassium 4.6 mmol/L (3.4-5.1); Sodium 139 mmol/L (137-145); Total Protein 7.1 g/dL (6.3-8.2); Triglycerides 183 mg/dL (35-150)
[2025-04-05 09:01] LABS: TSH w/ Reflex to FT4 1.49 uIU/mL (0.47-4.68)
== END ==
PROVIDERS: PCP Internal Medicine; Referring Provider Internal Medicine; Visit Provider Internal Medicine
DX: Z13.220 Encounter for screening for lipoid disorders (principal); K21.9 Gastro-esophageal reflux disease without esophagitis; K75.81 Nonalcoholic steatohepatitis (NASH)
CPT/HCPCS: 36415; 80053; 80061; 83690; 84443

== ENCOUNTER → 2025-04-23 11:24 | Outpatient (CLI) | payer OTHER, SELFPAY ==
[2024-04-16 14:53] VITALS: BMI 30.4
--- NOTE | 2025-04-23 11:25 | DI.MG.S_ITS ---
MM screening mammo BI: 04/23/2025. BI-RADS: 1 CLINICAL: 64-year old female for bilateral screening mammogram. Tyrer-Cuzick lifetime risk of 7.2%. No personal or first-degree family history of breast cancer. Current reported family history of breast cancer: maternal grandmother. PRIOR EXAMS 12/29/2022, 12/27/2017, 04/16/2016. MAMMOGRAPHY TECHNIQUE: 2D and 3D (tomosynthesis) digital mammographic views obtained, with additional images as needed for full coverage. Current study was also evaluated with a Computer Aided Detection (CAD) system. DENSITY B. There are scattered areas of fibroglandular density. MAMMOGRAPHY FINDINGS Bilateral: No suspicious mass, asymmetry, microcalcification, or other abnormality seen. IMPRESSION: * No evidence of malignancy. RECOMMENDATIONS Bilateral * Annual screening mammography. OVERALL ASSESSMENT CATEGORY BI-RADS-1: Negative. The [employer] recommends annual screening mammography beginning at age 40 for women with average risk of breast cancer. ELECTRONICALLY SIGNED: Aamir Gabriel M.D. on 04/23/2025 at 01:53:58 PM PT Interpreting Station ID: [id number]
== END ==
PROVIDERS: PCP Internal Medicine; Referring Provider Internal Medicine; Visit Provider Internal Medicine
DX: Z12.31 Encounter for screening mammogram for malignant neoplasm of breast (principal); Z80.3 Family history of malignant neoplasm of breast
CPT/HCPCS: 77063; 77067